=== PATIENT | female | born 1935 | race African-American/Black ===

== ENCOUNTER 2017-02-15 17:57 | Inpatient (IN) | payer MEDICARE ==
--- NOTE | 2017-02-15 19:25 | RAD ---
CHEST ONE VIEW 02/15/17 HISTORY: Dyspnea. Edema. COMPARISON: 01/05/16. FINDINGS: The cardiac silhouette is magnified and enlarged. Pulmonary vasculature is engorged with fluffy bilat eral perihilar and bibasilar infiltrates. Mediastinum is midline with aortic calcification. There is no evidence of pneumothorax. yard switcher leads overlie the chest. IMPRESSION: 1. CHF. 2. Atherosclerosis. POS: ROGER
[2017-02-15] MEDS ORDERED: Piperacillin/Tazobactam 3.375 GM in Sodium Chloride 0.9% 100 ML IVPB SCH (20:00)
[2017-02-15 20:01] LABS: #Eosinphils 0.1 thou/uL (0.0-0.7); #Lymphocytes 1.1 thou/uL (1.20-3.40); #Monocytes 0.6 thou/uL (0.11-0.59); #Neutrophils 5.1 thou/uL (1.40-6.50); %Basophils 0.4 % (0.0-1.0); %Eosinophils 0.8 % (0.0-10.0); %Monocytes 9.3 % (0.0-10.0); Hematocrit 33.1 % (36.0-47.0); Mean Platelet Volume 7.2 fL (7.4-10.4); Red Blood Cell (RBC) Count 3.73 mill/uL (4.20-5.40); White Blood Cell (WBC) Count 6.9 thou/uL (4.8-10.8)
[2017-02-15 20:07] LABS: PTT 31.6 SEC (22.9-36.1); Prothrombin Time 15.4 SEC (12.0-14.7)
[2017-02-15 20:18] LABS: Lactic Acid - Sepsis 1.6 mmol/L (0.5-2.2)
[2017-02-15 20:22] LABS: ALT (SGPT) 12 U/L (8-55); AST (SGOT) 15 U/L (5-34); Alkaline Phosphatase 77 U/L (40-150); Anion Gap 14 mmol/L (10-20); BUN (Urea Nitrogen) 32 mg/dL (9.8-20.1); Bilirubin, Total 0.3 mg/dL (0.2-1.2); CK (CPK) 118 U/L (29-168); Calc. Creatinine Clearance 0 mL/min (70-130); Calcium 9.7 mg/dL (7.8-10.44); Carbon Dioxide 27 mmol/L (23-31); Chloride 98 mmol/L (98-107); Estimated GFR-MDRD 29; Globulin 4.8 g/dL (2.4-3.5); Lipase 72 U/L (8-78); Protein, Total 7.8 g/dL (6.0-8.3)
[2017-02-15 20:26] LABS: Troponin I 0.256 ng/mL (< 0.028)
--- NOTE | 2017-02-15 20:57 | ULT ---
LEFT LOWER EXTREMITY VENOUS DUPLEX SONOGRAM 02/15/17 HISTORY: Left leg pain and edema. FINDINGS: The left common femoral vein and greater saphenous junction were evaluated along with the femoral, de ep femoral, popliteal and posterior tibial veins. There is good color and spectral doppler flow, comp ression and augmentation. IMPRESSION: No sonographic evidence of DVT within the left lower extremity. POS: LISA
--- NOTE | 2017-02-15 21:18 | RAD ---
LEFT LOWER LEG TWO VIEWS 02/15/17 HISTORY: Left leg pain and swelling. FINDINGS: The tibia and fibula are intact. Vascular calcifications are apparent. No acute fracture or dislocati on. IMPRESSION: 1. No acute osseous abnormalities are demonstrated. 2. Atherosclerosis. POS: ROGER
[2017-02-15 21:20] LABS: Bacteria/HPF 4+ HPF (None Seen); Bilirubin Negative (Negative); Blood, Urine Trace (Negative); Glucose, Urine (Dipstick) 500 mg/dL (Negative); Hyaline Casts/LPF 0-3 HYALINE CAST LPF (0-3 Hyaline); Ketone, Urine Negative (Negative); Nitrite Negative (Negative); Protein, Urine (Dipstick) Trace mg/dL (Neg-Trace); RBC/HPF 0-3 HPF (0-3)
[2017-02-15] MEDS ORDERED: hydrALAZINE 20 MG/ML VIAL SLOW IVP PRN (22:53)
[2017-02-15] MEDS ORDERED: Eucerin (Mineral Oil/Petrolatum,White) 30 gm Jar TOP PRN (22:53)
[2017-02-15] MEDS ORDERED: Dextrose 5% in Water 1,000 ML IV PRN (22:53)
[2017-02-15] MEDS ORDERED: Senokot 8.6 MG TAB PO PRN (22:53)
[2017-02-15] MEDS ORDERED: Artificial Tears 18 DROP/0.9 ML EA EYE PRN (22:53)
[2017-02-15] MEDS ORDERED: Sodium Chloride 0.65% Nasal 44 ML BOT EA NARE PRN (22:53)
[2017-02-15] MEDS ORDERED: Dextrose 50% Abboject 50 ML SYRINGE SLOW IVP PRN (22:53)
[2017-02-15] MEDS ORDERED: Diabetic Tussin 200 MG/10 ML UDCUP PO PRN (22:53)
[2017-02-15] MEDS ORDERED: Nitroglycerin 0.4 MG TAB (25 Tab Bottle) SL PRN (22:53)
[2017-02-15] MEDS ORDERED: Milk Of Magnesia 30 ML UDCUP PO PRN (22:53)
[2017-02-15] MEDS ORDERED: Ondansetron ODT 4 MG TAB PO PRN (22:53)
[2017-02-15] MEDS ORDERED: Ondansetron HCl/PF 4 MG/2 ML Vial IVP PRN (22:53)
[2017-02-15] MEDS ORDERED: Mag-Al 1200 mg/1200 mg/30 ML UDCUP PO PRN (22:53)
[2017-02-15] MEDS ORDERED: Zolpidem Tartrate 5 MG TAB PO PRN (22:53)
[2017-02-15] MEDS ORDERED: cloNIDine 0.1 MG TAB PO PRN (22:53)
[2017-02-15] MEDS ORDERED: Loperamide HCl 2 MG CAP PO PRN (22:53)
[2017-02-15] MEDS ORDERED: Loratadine 10 MG TAB PO PRN (22:53)
--- NOTE | 2017-02-15 23:38 | PDOC.EVN ---
Event Note - Event Note Event Note: Patient seen and examined. dictation note to follow
[2017-02-15 23:47] LABS: Troponin I 0.232 ng/mL (< 0.028)
[2017-02-16] MEDS: cefTRIAXone\\ROCEPHIN 1 GM in Syringe 10 ML IVPB SCH (00:37)
[2017-02-16 02:16] LABS: Troponin I 0.212 ng/mL (< 0.028)
--- NOTE | 2017-02-16 03:37 | HP ---
DATE OF SERVICE: 02/15/2017 PRIMARY CARE PHYSICIAN: Ian Holloway M.D. REASON FOR ADMISSION: Left lower extremity cellulitis, acute on chronic diastolic congestive heart f ailure. HISTORY OF PRESENT ILLNESS: An 81-year-old female who has history of morbid obesity, diabetes type 2 , hypertension, and chronic diastolic heart failure, who was brought to the emergency room for increa sing bilateral lower extremity edema, left more than right. The patient's family member reported mark t left lower extremity had two blisters, which was ruptured. The patient's family member also notice d that left lower extremity was more erythematous, warm and tender. The patient was feeling shortnes s of breath with a little exertion. She denies any chest pain, palpitation. She denies any dizzines s. She denies any UTI symptoms. The patient lives at home by herself. Her physical activity is very limited. She is using rolling w alker. This patient had last echocardiography in 2016, which showed EF 60% to 65% with a diastolic d ysfunction. The patient is taking Lasix 40 mg daily, but that is not improving her edema. Today in the emergency room, her chest x-ray showed pulmonary vascular congestion. Her blood sugar w as not well controlled and she had elevated troponin. The patient also has urinary tract infection, but patient denies any UTI symptoms. She denies any constipation, diarrhea or melena. ALLERGIES: No known drug allergies. CURRENT HOME MEDICATIONS: Aspirin 81 mg p.o. daily, Coreg 25 mg p.o. b.i.d., Lasix 40 mg p.o. b.i.d. , Lyrica 75 mg p.o. b.i.d., Crestor 20 mg p.o. daily, Janumet one tablet p.o. b.i.d., Januvia 50 mg p .o. daily, valsartan with hydrochlorothiazide one tablet p.o. daily. REVIEW OF SYSTEMS: The following complete review of systems was negative, unless otherwise mentioned in the HPI or below: Constitutional: Weight loss or gain, ability to conduct usual activities. Skin: Rash, itching. Eyes: Double vision, pain. ENT/Mouth: Nose bleeding, neck stiffness, pain, tenderness. Cardiovascular: Palpitations, dyspnea on exertion, orthopnea. Respiratory: Shortness of breath, wheezing, cough, hemoptysis, fever or night sweats. Gastrointestinal: Poor appetite, abdominal pain, heartburn, nausea, vomiting, constipation, or diarr hea. Genitourinary: Urgency, frequency, dysuria, nocturia. Musculoskeletal: Pain, swelling. Neurologic/Psychiatric: Anxiety, depression. Allergy/Immunologic: Skin rash, bleeding tendency. Otherwise negative except as stated per HPI. Please see my HPI for pertinent positive and negative. All other review of systems reviewed and nega tive except as mentioned in the HPI. PAST MEDICAL HISTORY: Diabetes type 2, diabetic neuropathy, hypertension, dyslipidemia, chronic banks tolic heart failure, osteoarthritis, morbid obesity. PAST SURGICAL HISTORY: Appendicectomy, hysterectomy. PAST PSYCHIATRIC HISTORY: Reviewed and negative. SOCIAL HISTORY: The patient lives at home by herself. Her daughter is present at bedside, who provi get help to her. She denies any tobacco, alcohol or illicit drug abuse. FAMILY HISTORY: No strong family history of premature coronary artery disease, stroke or cancer. EMERGENCY ROOM COURSE: The patient was given vancomycin, Zosyn, nitropatch and aspirin. PHYSICAL EXAMINATION: VITAL SIGNS: On arrival, blood pressure 140/61, pulse 69, respiratory rate 18, temperature 99.0, sat uration 96% on room air, weight 117.9 kilograms. GENERAL: The patient is currently alert, awake, no obvious acute distress, hypertensive chronically weak. HEAD: Normocephalic, atraumatic. EYES: Pupils round, reactive to light. Extraocular muscles intact. ENT: Oropharynx within normal limits. Moist mucous membranes. No oral lesions. No pharyngeal eryt flavia, no exudate. NECK: Supple, range of motion is normal. No meningeal signs of irritation, no JVD, no thyromegaly, no carotid bruit. LUNGS: Bibasilar rales noted. Air entry reduced at bases. CARDIAC: S1, S2 regular. Systolic murmur present at the left parasternal border. No gallop, no rub . ABDOMEN: Morbid obesity limiting examination. No peritoneal signs, no guarding, no rigidity, no aakash ound, no suprapubic tenderness. BACK: Unremarkable. No CVA tenderness. EXTREMITIES: Upper extremities: Passive movement of all joints are normal. Lower extremities: Lef t lower extremity has erythema, tenderness, blister noted and more swollen than the right lower extre mity. A +3 pitting edema noted. Pulsation is intact. NEUROLOGIC: The patient moves all 4 limbs. Grossly nonfocal examination. SKIN: The patient does have bilateral venostasis changes in lower extremities with blisters on the l eft lower extremity. PSYCHIATRIC: Normal affect. SIGNIFICANT LABS: EKG showing first-degree AV block, nonspecific T-wave changes in anterior leads. Chest x-ray was consistent with findings suggestive of atherosclerosis, pulmonary vascular congestion . Ultrasound of left lower extremity is negative for any DVT, tibia, fibula x-ray negative for any a cute process. CBC: WBC 6.9, hemoglobin 10.7, platelets 204. INR 1.2. BMP: Sodium 135, potassium 3.9, chloride 98, carbon dioxide 27, anion gap 14, BUN 32, creatinine 1.98, glucose 380, calcium 9.7. Lactic acid 1.6. LFT: AST 15, ALT 12, alkaline phosphatase 77, albumin 3.0. CK 118, CK-MB 1.5, t roponin 0.256. BNP 411.9. Urinalysis suggestive of urinary tract infection. ASSESSMENT AND PLAN/IMPRESSION: 1. Left lower extremity cellulitis. Clinically, this patient has left lower extremity cellulitis. The patient will be given vancomycin and Rocephin while in hospital. Vancomycin dose will be adjuste d by pharmacy. We will repeat CRP level tomorrow. We will follow up on blood culture result. 2. Acute on chronic diastolic congestive heart failure. We will repeat echocardiography during this admission. Cardiac rehabilitation will be consulted. We will continue with Lasix 40 mg IV b.i.d., fluid restriction 1500 mL per day. We will also consider adding Zaroxolyn 5 mg p.o. daily. While in hospital, we will monitor renal function. We will replace electrolytes as needed basis. We will co ntinue with Coreg 25 mg p.o. b.i.d. 3. Hypertension. We will continue Coreg 25 mg p.o. b.i.d., valsartan with hydrochlorothiazide one t ablet p.o. daily along with Lasix 40 mg IV b.i.d. We will also use hydralazine on p.r.n. basis. 4. Urinary tract infection. We will send urine culture. The patient is already on Rocephin and van comycin therapy. We will follow up on urine culture result. 5. Diabetes type 2, uncontrolled. We will continue with Januvia only because of renal failure. We will avoid metformin therapy. We will continue with insulin as per sliding scale per protocol. Diab etic diet will be given. 6. Elevated troponin, likely due to demand ischemia. We will do serial cardiac enzymes to rule out acute coronary syndrome and we will obtain echocardiography. We will continue with aspirin 81 mg p.o . daily. 7. Morbid obesity with BMI of 43, weight loss education given. Healthy lifestyle measure discussed with the patient. 8. Physical deconditioning. The patient will need PT, OT, and possible placement to [facility] home. 9. Chronic kidney disease, stage 3. We will monitor renal function and replace electrolytes as need ed basis. 10. Anemia, normocytic, normochromic. We will continue with ferrous sulfate 325 mg p.o. daily. 11. Deep venous thrombosis prophylaxis, heparin 5000 units subcu 3 times daily. 12. Gastrointestinal prophylaxis, Protonix 40 mg p.o. daily. CODE STATUS: The patient is FULL CODE. The patient's daughter is surrogate decision maker. Disposition plan based on clinical course. We are expecting patient's stay in the hospital more than 2 midnights. Plan of care discussed with the family member at bedside.
[2017-02-16] MEDS: HYDROcodone/Acetaminophen 5/325 mg Tablet PO PRN ×3 (04:32→21:39)
[2017-02-16 05:33] LABS: #Eosinphils 0.1 thou/uL (0.0-0.7); #Lymphocytes 1.1 thou/uL (1.20-3.40); #Monocytes 0.7 thou/uL (0.11-0.59); #Neutrophils 5.3 thou/uL (1.40-6.50); %Basophils 0.1 % (0.0-1.0); %Eosinophils 1.4 % (0.0-10.0); %Lymphocytes 14.7 % (21.0-51.0); %Monocytes 9.8 % (0.0-10.0); Hematocrit 28.5 % (36.0-47.0); Red Blood Cell (RBC) Count 3.21 mill/uL (4.20-5.40); White Blood Cell (WBC) Count 7.2 thou/uL (4.8-10.8)
[2017-02-16 05:41] LABS: ALT (SGPT) 11 U/L (8-55); AST (SGOT) 12 U/L (5-34); Alkaline Phosphatase 69 U/L (40-150); Anion Gap 13 mmol/L (10-20); BUN (Urea Nitrogen) 27 mg/dL (9.8-20.1); Bilirubin, Total 0.3 mg/dL (0.2-1.2); Calc. Creatinine Clearance 50 mL/min (70-130); Calcium 9.6 mg/dL (7.8-10.44); Carbon Dioxide 27 mmol/L (23-31); Chloride 102 mmol/L (98-107); Estimated GFR-MDRD 37; Globulin 4.4 g/dL (2.4-3.5); Magnesium 1.5 mg/dL (1.6-2.6); Protein, Total 7.1 g/dL (6.0-8.3); Uric Acid 10.2 mg/dL (2.6-6.0)
[2017-02-16] MEDS: Furosemide 40 MG/4 ML VIAL SLOW IVP SCH ×2 (06:31→14:00)
[2017-02-16] MEDS: Ferrous Sulfate 325 MG TAB PO SCH (08:36)
[2017-02-16] MEDS: Metolazone 5 MG TAB PO SCH (08:37)
[2017-02-16] MEDS: Carvedilol 25 MG TAB PO SCH ×2 (08:37→21:40)
[2017-02-16] MEDS: Heparin 5,000 UNITS/ML VIAL SC SCH ×3 (08:37→21:40)
[2017-02-16] MEDS: Alogliptin Benzoate 6.25 MG TABLET PO SCH (08:37)
[2017-02-16] MEDS: Hydrochlorothiazide 25 MG TAB PO SCH (08:38)
[2017-02-16] MEDS: Pregabalin 75 MG CAP PO SCH ×2 (08:38→21:38)
[2017-02-16] MEDS: Saccharomyces boulardii 250 MG CAP PO SCH (08:39)
[2017-02-16] MEDS: Valsartan 80 MG TAB PO SCH (08:40)
[2017-02-16] MEDS ORDERED: Non-Formulary Item 1 EACH (Valsartan/Hydrochlorothiazide [Valsartan-Hctz 320-12.5 Mg Tab] PO SCH (09:00)
[2017-02-16] MEDS ORDERED: FLU VACC TS2017-18 (>65YR) 0.5 ML SYRINGE IM ONE (09:00)
[2017-02-16] MEDS: HumaLOG 300 UNITS/3 ML VIAL SC PRN ×2 (12:18→17:17)
--- NOTE | 2017-02-16 12:27 | PDOC.PN ---
- Subjective Encounter Start Date: 02/16/17 Encounter Start Time: 11:35 Pt seen and examined, chart reviewed in its entirety. This is my first visit with this patient. pt complains of L>R BLE pain, swelling. no f/C,no N/V/d/c, archie po. feels weak. Daughter at mary, updated to current diagnossi and plan. 10 point ROS performed and neg for all systems except as per HPI - Objective Resuscitation Status: Resuscitation Status FULL:Full Resuscitation MAR Reviewed: Yes Vital Signs & Weight: Vital Signs (12 hours) Temp Pulse Pulse Pulse Resp BP BP 02/16/17 08:31 98.7 F 72 18 02/16/17 08:00 98.7 F 72 18 02/16/17 07:31 70 72 141/65 H 147/65 H 02/16/17 04:00 97.3 F L 72 20 BP Pulse Ox Pulse Ox 02/16/17 08:31 176/72 H 95 02/16/17 08:00 95 02/16/17 07:31 95 02/16/17 04:00 153/66 H 96 Weight Weight 252 lb I&O: 02/15/17 02/16/17 02/17/17 06:59 06:59 06:59 Intake Total 10 Balance 10 Result Diagrams: 02/16/17 04:52 02/16/17 04:52 Additional Labs: Accuchecks 02/16/17 02/16/17 12:00 06:23 POC Glucose 305 H 256 H Radiology Reviewed by me: Yes EKG Reviewed by me: Yes Phys Exam - Physical Examination Constitutional: NAD HEENT: PERRLA, moist MMs, sclera anicteric, oral pharynx no lesions Neck: no nodes, no JVD, supple, full ROM Respiratory: no wheezing, no rales, no rhonchi, clear to auscultation bilateral no crackles heard Cardiovascular: RRR, no significant murmur, no rub Gastrointestinal: soft, non-tender, no distention, positive bowel sounds Musculoskeletal: pulses present, edema present Left more than right LE edema Neurological: non-focal, normal sensation, moves all 4 limbs Lymphatic: no nodes Psychiatric: normal affect, A&O x 3 Skin: no rash, normal turgor, cap refill <2 seconds Deviation from normal: LLE with increased edma, posterior ankle bulla, increased heat and redness Dx/Plan (1) Cellulitis and abscess of left leg Code(s): L03.116 - CELLULITIS OF LEFT LOWER LIMB; L02.416 - CUTANEOUS ABSCESS OF LEFT LOWER LIMB Status: Acute Comment: look streptococcal, clinically correct givne cgronic edema and intertriginous cracking to B feet. On broad bx , will narrwo to Rocephin, addind in clinda for toxin inhibition. Will elevate and compress. Wound care consulted (2) Sepsis Code(s): A41.9 - SEPSIS, UNSPECIFIED ORGANISM Status: Acute Qualifiers: Sepsis type: Streptococcus group A Qualified Code(s): A40.0 - Sepsis due to streptococcus, group A (3) Chronic diastolic (congestive) heart failure Code(s): I50.32 - CHRONIC DIASTOLIC (CONGESTIVE) HEART FAILURE Status: Chronic (4) Diabetes type 2, controlled Code(s): E11.9 - TYPE 2 DIABETES MELLITUS WITHOUT COMPLICATIONS Status: Chronic Qualifiers: Diabetes mellitus complication status: without complication Diabetes mellitus snf insulin use: with snf use Qualified Code(s): E11.9 - Type 2 diabetes mellitus without complications; Z79.4 - MCFP (current) use of insulin; Z79.4 - MCFP (current) use of insulin; Z79.4 - long term ( current) use of insulin; Z79.4 - long term (current) use of insulin (5) Hypertension Code(s): I10 - ESSENTIAL (PRIMARY) HYPERTENSION Status: Chronic Qualifiers: Hypertension type: essential hypertension Qualified Code(s): I10 - Essential (primary) hypertension (6) Morbid obesity with BMI of 40.0-44.9, adult Code(s): E66.01 - MORBID (SEVERE) OBESITY DUE TO EXCESS CALORIES; Z68.41 - BODY MASS INDEX (BMI) 40.0-44.9, ADULT Status: Chronic - Plan cont current plan of care, plan discussed w/ family, continue antibiotics, PT/OT , social insurance adviser * .
[2017-02-16] MEDS: Clindamycin/D5W 600 MG in Premix Bag 1 BAG IVPB SCH ×2 (14:00→21:40)
[2017-02-16] MEDS ORDERED: Vancomycin HCl 1 GM in Premix Bag 1 BAG IVPB SCH (20:00)
[2017-02-16] MEDS: Acetaminophen 325 MG TAB PO PRN (21:39)
[2017-02-17] MEDS: cefTRIAXone\\ROCEPHIN 1 GM in Syringe 10 ML IVPB SCH ×2 (00:23→23:42)
[2017-02-17 05:18] LABS: #Eosinphils 0.1 thou/uL (0.0-0.7); #Lymphocytes 1.3 thou/uL (1.20-3.40); #Neutrophils 8.3 thou/uL (1.40-6.50); %Basophils 0.3 % (0.0-1.0); %Eosinophils 0.5 % (0.0-10.0); %Lymphocytes 12.4 % (21.0-51.0); %Monocytes 9.4 % (0.0-10.0); Hematocrit 29.8 % (36.0-47.0); Mean Platelet Volume 6.9 fL (7.4-10.4); Red Blood Cell (RBC) Count 3.38 mill/uL (4.20-5.40); White Blood Cell (WBC) Count 10.7 thou/uL (4.8-10.8)
[2017-02-17 05:41] LABS: Anion Gap 11 mmol/L (10-20); BUN (Urea Nitrogen) 28 mg/dL (9.8-20.1); Calc. Creatinine Clearance 50 mL/min (70-130); Calcium 9.9 mg/dL (7.8-10.44); Carbon Dioxide 32 mmol/L (23-31); Chloride 99 mmol/L (98-107); Estimated GFR-MDRD 37
[2017-02-17] MEDS: Clindamycin/D5W 600 MG in Premix Bag 1 BAG IVPB SCH ×3 (06:15→21:06)
[2017-02-17] MEDS: Furosemide 40 MG/4 ML VIAL SLOW IVP SCH ×2 (06:46→14:21)
[2017-02-17] MEDS: Carvedilol 25 MG TAB PO SCH ×2 (08:52→21:14)
[2017-02-17] MEDS: Alogliptin Benzoate 6.25 MG TABLET PO SCH (08:52)
[2017-02-17] MEDS: Hydrochlorothiazide 25 MG TAB PO SCH (08:53)
[2017-02-17] MEDS: Saccharomyces boulardii 250 MG CAP PO SCH (08:53)
[2017-02-17] MEDS: Ferrous Sulfate 325 MG TAB PO SCH (08:53)
[2017-02-17] MEDS: Metolazone 5 MG TAB PO SCH (08:53)
[2017-02-17] MEDS: Valsartan 80 MG TAB PO SCH (08:53)
[2017-02-17] MEDS: Pregabalin 75 MG CAP PO SCH ×2 (08:54→21:13)
[2017-02-17] MEDS: Heparin 5,000 UNITS/ML VIAL SC SCH ×3 (08:55→21:14)
[2017-02-17] MEDS ORDERED: Potassium Chloride 20 MEQ TAB PO SCH (10:30)
[2017-02-17] MEDS ORDERED: Potassium Chloride 40 MEQ in Sodium Chloride 0.9% 500 ML IVPB SCH ×4 (10:30)
[2017-02-17] MEDS: HumaLOG 300 UNITS/3 ML VIAL SC PRN ×3 (12:10→23:36)
--- NOTE | 2017-02-17 14:02 | PDOC.PN ---
- Subjective Encounter Start Date: 02/17/17 Encounter Start Time: 13:59 Subjective: feels better.swelling is better in legs. pain on touch still there -: c/o constipation - Objective Resuscitation Status: Resuscitation Status FULL:Full Resuscitation MAR Reviewed: Yes Vital Signs & Weight: Vital Signs (12 hours) Temp Pulse Pulse Pulse Resp BP BP 02/17/17 10:23 76 72 115/56 L 130/63 02/17/17 09:00 99.5 F 02/17/17 08:00 100.2 F H 77 17 02/17/17 05:14 100.0 F H 73 18 BP Pulse Ox 02/17/17 10:23 02/17/17 09:00 02/17/17 08:00 153/65 H 94 L 02/17/17 05:14 137/62 94 L Weight Weight 251 lb I&O: 02/16/17 02/17/17 02/18/17 06:59 06:59 06:59 Intake Total 10 720 440 Balance 10 720 440 Result Diagrams: 02/17/17 05:04 02/17/17 05:04 Additional Labs: Accuchecks 02/17/17 02/17/17 02/16/17 11:22 06:11 21:07 POC Glucose 291 H 210 H 167 H Microbiology 02/15/17 21:00 Urine voided Urine Culture - Preliminary Presumptive Escherichia coli 02/15/17 20:07 Venous blood - Left Hand Blood Culture - Preliminary Specimen has been received and culture in progress. No Growth to date. 02/15/17 19:49 Venous blood - Right Hand Blood Culture - Preliminary Specimen has been received and culture in progress. No Growth to date. Laboratory Tests 02/15/17 02/15/17 02/15/17 19:47 19:47 19:47 Creatinine 1.98 H Troponin I 0.256 H C-Reactive Protein B-Natriuretic Peptide 411.9 H 02/15/17 02/16/17 02/16/17 22:46 01:43 04:52 Creatinine 1.63 H Troponin I 0.232 H 0.212 H C-Reactive Protein B-Natriuretic Peptide 02/16/17 02/17/17 04:52 05:04 Creatinine 1.63 H Troponin I C-Reactive Protein 10.26 H B-Natriuretic Peptide Radiology Reviewed by me: Yes (ECHO- NL EF. LE doppler-No DVT left leg) Phys Exam - Physical Examination Constitutional: NAD HEENT: PERRLA, moist MMs, sclera anicteric, oral pharynx no lesions Neck: no nodes, no JVD, supple, full ROM Respiratory: no wheezing, no rales, no rhonchi, clear to auscultation bilateral Cardiovascular: RRR, no significant murmur, no rub, gallop Gastrointestinal: soft, non-tender, no distention, positive bowel sounds Musculoskeletal: pulses present, edema present (improving.) Neurological: non-focal, normal sensation, moves all 4 limbs Psychiatric: normal affect, A&O x 3 Skin: no rash Dx/Plan (1) Cellulitis and abscess of left leg Code(s): L03.116 - CELLULITIS OF LEFT LOWER LIMB; L02.416 - CUTANEOUS ABSCESS OF LEFT LOWER LIMB Status: Acute Comment: look streptococcal . On Rocephin and clinda for toxin inhibition. elevate and compress. Wound care consulted (2) Acute on chronic diastolic CHF (congestive heart failure) Code(s): I50.33 - ACUTE ON CHRONIC DIASTOLIC (CONGESTIVE) HEART FAILURE Status : Acute (3) UTI (urinary tract infection) Status: Resolved Comment: E.coli (4) CKD (chronic kidney disease) stage 3, GFR 30-59 ml/min Code(s): N18.3 - CHRONIC KIDNEY DISEASE, STAGE 3 (MODERATE) Status: Chronic (5) Diabetes type 2, controlled Code(s): E11.9 - TYPE 2 DIABETES MELLITUS WITHOUT COMPLICATIONS Status: Chronic Qualifiers: Diabetes mellitus complication status: with hyperglycemia Diabetes mellitus commodity loan clerk insulin use: with commodity loan clerk use Qualified Code(s): E11.65 - Type 2 diabetes mellitus with hyperglycemia; Z79.4 - halfway (current) use of insulin; Z79.4 - training program assistant (current) use of insulin; Z79.4 - training program assistant ( current) use of insulin; Z79.4 - halfway (current) use of insulin (6) Hypertension Code(s): I10 - ESSENTIAL (PRIMARY) HYPERTENSION Status: Chronic Qualifiers: Hypertension type: essential hypertension Qualified Code(s): I10 - Essential (primary) hypertension (7) Morbid obesity with BMI of 40.0-44.9, adult Code(s): E66.01 - MORBID (SEVERE) OBESITY DUE TO EXCESS CALORIES; Z68.41 - BODY MASS INDEX (BMI) 40.0-44.9, ADULT Status: Chronic (8) Elevated troponin I level Code(s): R74.8 - ABNORMAL LEVELS OF OTHER SERUM ENZYMES Status: Acute - Plan continue antibiotics, PT/OT, out of bed/ambulate, DVT proph w/SCDs cont ABx for LLE cellulitis.no DVT.clinically improving. -: cont lasix ,zaroxolyn for now. taper from tomorrow. Monitor renal Fx -: cont ASA, BB,ARB,statin. ECHO with good EF. -: HF clinic f/u on DC.cont OT,PT. -: add laxatives.AM labs * . Review of Systems - Review of Systems Constitutional: Weakness, Malaise. negative: Fever, Chills, Sweats, Other ENT: negative: Ear Pain, Ear Discharge, Nose Pain, Nose Discharge, Nose Congestion, Mouth Pain, Mouth Swelling, Throat Pain, Throat Swelling, Other Respiratory: negative: Cough, Dry, Shortness of Breath, Hemoptysis, SOB with Excertion, Pleuritic Pain, Sputum, Wheezing Cardiovascular: negative: Chest Pain, Palpitations, Orthopnea, Paroxysmal Noc. Dyspnea, Edema, Light Headedness, Other Gastrointestinal: negative: Nausea, Vomiting, Abdominal Pain, Diarrhea, Constipation, Melena, Hematochezia, Other Genitourinary: negative: Dysuria, Frequency, Incontinence, Hematuria, Retention , Other Musculoskeletal: Leg Pain (left ). negative: Neck Pain, Shoulder Pain, Arm Pain , Back Pain, Hand Pain, Foot Pain, Other - Medications/Allergies Allergies/Adverse Reactions: Allergies Allergy/AdvReac Type Severity Reaction Status Date / Time No Known Drug Allergies Allergy Verified 02/15/17 23:23 Medications: Current Medications Acetaminophen (Tylenol) 650 mg PO Q4H PRN PRN Reason: Headache/Fever or Pain Last Admin: 02/16/17 21:39 Dose: 650 mg Hydrocodone Bitart/Acetaminophen ([place] 5/325) 1 tab PO Q4H PRN PRN Reason: Moderate Pain (4-6) Last Admin: 02/16/17 21:39 Dose: 1 tab Al Hydroxide/Mg Hydroxide (Maalox) 30 ml PO Q6H PRN PRN Reason: Heartburn or Indigestion Alogliptin Benzoate (Alogliptin) 12.5 mg PO DAILY [facility] Last Admin: 02/17/17 08:52 Dose: 12.5 mg Artificial Tears (Tears Naturale) 0 drop EA EYE PRN PRN PRN Reason: Dry Eyes Aspirin (Aspirin Chewable) 81 mg PO DAILY [facility] Last Admin: 02/17/17 08:52 Dose: 81 mg Carvedilol (Coreg) 25 mg PO BID [facility] Last Admin: 02/17/17 08:52 Dose: 25 mg Clonidine (Catapres) 0.1 mg PO Q4H PRN PRN Reason: Systolic BP > 180 Dextrose/Water (Dextrose 50%) 25 gm SLOW IVP PRN PRN PRN Reason: Hypoglycemia Ferrous Sulfate (Feosol) 325 mg PO QAM-[facility] Last Admin: 02/17/17 08:53 Dose: 325 mg Furosemide (Lasix) 40 mg SLOW IVP 0600,1400 [facility] Last Admin: 02/17/17 06:46 Dose: 40 mg Glucagon (Glucagon) 1 mg IM PRN PRN PRN Reason: Hypoglycemia Guaifenesin (Robitussin Sf) 200 mg PO Q4H PRN PRN Reason: Cough Heparin Sodium (Porcine) (Heparin) 5,000 units SC TID [facility] Last Admin: 02/17/17 08:55 Dose: 5,000 units Hydralazine HCl (Apresoline) 10 mg SLOW IVP Q4H PRN PRN Reason: Systolic BP > 180 Hydrochlorothiazide (Hydrochlorothiazide) 12.5 mg PO DAILY [facility] Last Admin: 02/17/17 08:53 Dose: 12.5 mg Ceftriaxone Sodium 1 gm/ (Syringe) 10 mls @ 120 mls/hr IVPB Q24HR@2359 [facility] Last Admin: 02/17/17 00:23 Dose: 10 mls Dextrose/Water (D5w) 1,000 mls @ 0 mls/hr IV .Q0M PRN; As Directed PRN Reason: Hypoglycemia Clindamycin Phosphate/Dextrose (600 mg/ Device) 50 mls @ 100 mls/hr IVPB Q8HR [facility] Last Admin: 02/17/17 06:15 Dose: 50 mls Potassium Chloride 40 meq/ (Sodium Chloride) 520 mls @ 130 mls/hr IVPB NOW [facility] Stop: 02/17/17 14:29 Last Admin: 02/17/17 10:53 Dose: 520 mls Insulin Human Lispro (Humalog) 0 units SC .AGGRESSIVE SLIDING PRN PRN Reason: Aggressive Correctional Scale Last Admin: 02/17/17 12:10 Dose: 9 unit Insulin Human Lispro (Humalog) 0 units SC .BEDTIME SLIDING SC PRN PRN Reason: Bedtime Correctional Scale Loperamide HCl (Imodium) 2 mg PO PRN PRN PRN Reason: Diarrhea/Loose Stools Loratadine (Claritin) 10 mg PO DAILYPRN PRN PRN Reason: Sinus Symptoms Magnesium Hydroxide (Milk Of Magnesium) 30 ml PO DAILYPRN PRN PRN Reason: Constipation Metolazone (Zaroxolyn) 5 mg PO 0830 [facility] Last Admin: 02/17/17 08:53 Dose: 5 mg Mineral Oil/White Petrolatum (Eucerin Cream) 0 gm TOP BIDPRN PRN PRN Reason: Dry Skin Nitroglycerin (Nitrostat) 0.4 mg SL Q5MIN PRN PRN Reason: Chest Pain Ondansetron HCl (Zofran Odt) 4 mg PO Q6H PRN PRN Reason: Nausea/Vomiting Ondansetron HCl (Zofran) 4 mg IVP Q6H PRN PRN Reason: Nausea/Vomiting Pantoprazole Sodium (Protonix) 40 mg PO DAILY [facility] Last Admin: 02/17/17 08:52 Dose: 40 mg Potassium Chloride (K-Dur) 20 meq PO BID-[facility] Pregabalin (Lyrica) 75 mg PO BID [facility] Last Admin: 02/17/17 08:54 Dose: 75 mg Rosuvastatin Calcium (Crestor) 20 mg PO DAILY [facility] Last Admin: 02/17/17 08:54 Dose: 20 mg Saccharomyces Boulardii (Florastor) 250 mg PO DAILY [facility] Last Admin: 02/17/17 08:53 Dose: 250 mg Senna (Senokot) 2 tab PO HSPRN PRN PRN Reason: Constipation Sodium Chloride ([place] 0.65%) 0 ml EA NARE QIDPRN PRN PRN Reason: Nasal Congestion Valsartan (Diovan) 320 mg PO DAILY [facility] Last Admin: 02/17/17 08:53 Dose: 320 mg Zolpidem Tartrate (Ambien) 5 mg PO HSPRN PRN PRN Reason: Insomnia
[2017-02-17] MEDS ORDERED: Docusate 100 MG CAP PO PRN (14:13)
[2017-02-17] MEDS ORDERED: Bisacodyl 5 MG TAB PO PRN (14:13)
[2017-02-17] MEDS: Acetaminophen 325 MG TAB PO PRN (15:39)
[2017-02-17] MEDS: Potassium Chloride 20 MEQ TAB PO SCH (16:35)
[2017-02-18] MEDS: Clindamycin/D5W 600 MG in Premix Bag 1 BAG IVPB SCH ×3 (05:40→21:39)
[2017-02-18] MEDS: Acetaminophen 325 MG TAB PO PRN (05:40)
[2017-02-18 05:44] LABS: #Monocytes 0.8 thou/uL (0.11-0.59); #Neutrophils 8.7 thou/uL (1.40-6.50); %Basophils 0.1 % (0.0-1.0); %Eosinophils 0.4 % (0.0-10.0); %Monocytes 7.7 % (0.0-10.0); Hematocrit 30.7 % (36.0-47.0); Mean Platelet Volume 7.3 fL (7.4-10.4); Red Blood Cell (RBC) Count 3.49 mill/uL (4.20-5.40); White Blood Cell (WBC) Count 10.5 thou/uL (4.8-10.8)
[2017-02-18 05:49] LABS: Anion Gap 12 mmol/L (10-20); BUN (Urea Nitrogen) 29 mg/dL (9.8-20.1); Calc. Creatinine Clearance 45 mL/min (70-130); Calcium 9.6 mg/dL (7.8-10.44); Carbon Dioxide 31 mmol/L (23-31); Chloride 97 mmol/L (98-107); Estimated GFR-MDRD 33
--- NOTE | 2017-02-18 08:26 | PDOC.PN ---
- Subjective Encounter Start Date: 02/18/17 Encounter Start Time: 08:00 Subjective: FEELING BETTER, SWELLING IMPROVED CONTINUED PAIN WITH PALPATION - Objective Resuscitation Status: Resuscitation Status FULL:Full Resuscitation MAR Reviewed: Yes Vital Signs & Weight: Vital Signs (12 hours) Temp Pulse Resp BP Pulse Ox 02/18/17 08:00 99.4 F 70 16 119/58 L 94 L 02/18/17 04:00 101.3 F H 72 20 138/58 L 95 02/17/17 20:45 99.9 F H 76 18 118/56 L 96 Weight Weight 249 lb 6.4 oz I&O: 02/17/17 02/18/17 02/19/17 06:59 06:59 06:59 Intake Total 720 1770 Balance 720 1770 Result Diagrams: 02/18/17 05:15 02/18/17 05:15 Additional Labs: Accuchecks 02/18/17 02/17/17 02/17/17 05:26 20:11 16:58 POC Glucose 263 H 268 H 261 H 02/17/17 02/16/17 11:22 16:48 POC Glucose 291 H 226 H Phys Exam - Physical Examination Constitutional: NAD HEENT: PERRLA, moist MMs, sclera anicteric Neck: supple, full ROM Respiratory: no wheezing, clear to auscultation bilateral Cardiovascular: RRR HI Gastrointestinal: soft, non-tender, positive bowel sounds Musculoskeletal: edema present Neurological: non-focal, moves all 4 limbs Psychiatric: normal affect, A&O x 3 Deviation from normal: ERYTHEMA LLE Dx/Plan (1) Acute on chronic diastolic CHF (congestive heart failure) Code(s): I50.33 - ACUTE ON CHRONIC DIASTOLIC (CONGESTIVE) HEART FAILURE Status : Acute (2) Cellulitis and abscess of left leg Code(s): L03.116 - CELLULITIS OF LEFT LOWER LIMB; L02.416 - CUTANEOUS ABSCESS OF LEFT LOWER LIMB Status: Acute Comment: look streptococcal . On Rocephin and clinda for toxin inhibition. elevate and compress. Wound care consulted (3) Sepsis Code(s): A41.9 - SEPSIS, UNSPECIFIED ORGANISM Status: Acute Qualifiers: Sepsis type: Streptococcus group A Qualified Code(s): A40.0 - Sepsis due to streptococcus, group A (4) CKD (chronic kidney disease) stage 3, GFR 30-59 ml/min Code(s): N18.3 - CHRONIC KIDNEY DISEASE, STAGE 3 (MODERATE) Status: Chronic (5) Acute worsening of stage 3 chronic kidney disease Code(s): N18.3 - CHRONIC KIDNEY DISEASE, STAGE 3 (MODERATE) Status: Acute (6) Diabetes type 2, controlled Code(s): E11.9 - TYPE 2 DIABETES MELLITUS WITHOUT COMPLICATIONS Status: Chronic Qualifiers: Diabetes mellitus complication status: with hyperglycemia Diabetes mellitus long term care social worker insulin use: with long term care social worker use Qualified Code(s): E11.65 - Type 2 diabetes mellitus with hyperglycemia; Z79.4 - residential (current) use of insulin; Z79.4 - long term care social worker (current) use of insulin; Z79.4 - long term care social worker ( current) use of insulin; Z79.4 - long term care social worker (current) use of insulin (7) Morbid obesity with BMI of 40.0-44.9, adult Code(s): E66.01 - MORBID (SEVERE) OBESITY DUE TO EXCESS CALORIES; Z68.41 - BODY MASS INDEX (BMI) 40.0-44.9, ADULT Status: Chronic (8) UTI (urinary tract infection) Status: Resolved Comment: E.coli - Plan cont current plan of care, plan discussed w/ family, continue antibiotics IMPROVED CLINICALLY. CONT ANTIMICROBIALS PER IV. CHANGE TO P.O. UPON -: D/C * .
[2017-02-18] MEDS: Alogliptin Benzoate 6.25 MG TABLET PO SCH (08:36)
[2017-02-18] MEDS: Heparin 5,000 UNITS/ML VIAL SC SCH ×4 (08:36→22:24)
[2017-02-18] MEDS: HumaLOG 300 UNITS/3 ML VIAL SC PRN ×4 (08:36→21:41)
[2017-02-18] MEDS: Valsartan 80 MG TAB PO SCH (08:37)
[2017-02-18] MEDS: Hydrochlorothiazide 25 MG TAB PO SCH (08:37)
[2017-02-18] MEDS: Carvedilol 25 MG TAB PO SCH ×2 (08:37→21:40)
[2017-02-18] MEDS: Potassium Chloride 20 MEQ TAB PO SCH ×2 (08:37→17:23)
[2017-02-18] MEDS: Ferrous Sulfate 325 MG TAB PO SCH (08:38)
[2017-02-18] MEDS: Saccharomyces boulardii 250 MG CAP PO SCH (08:38)
[2017-02-18] MEDS: Pregabalin 75 MG CAP PO SCH ×2 (08:38→21:40)
[2017-02-18] MEDS: Metolazone 5 MG TAB PO SCH (08:38)
[2017-02-18] MEDS: Furosemide 40 MG TAB PO SCH ×2 (08:38→14:23)
[2017-02-19] MEDS: cefTRIAXone\\ROCEPHIN 1 GM in Syringe 10 ML IVPB SCH (00:28)
[2017-02-19] MEDS: Acetaminophen 325 MG TAB PO PRN ×2 (04:23→21:06)
[2017-02-19] MEDS: Clindamycin/D5W 600 MG in Premix Bag 1 BAG IVPB SCH ×3 (05:29→20:58)
[2017-02-19 05:51] LABS: Anion Gap 12 mmol/L (10-20); BUN (Urea Nitrogen) 35 mg/dL (9.8-20.1); Calc. Creatinine Clearance 42 mL/min (70-130); Carbon Dioxide 30 mmol/L (23-31); Chloride 97 mmol/L (98-107); Estimated GFR-MDRD 31
[2017-02-19] MEDS: Potassium Chloride 20 MEQ TAB PO SCH ×2 (09:25→17:01)
[2017-02-19] MEDS: Ferrous Sulfate 325 MG TAB PO SCH (09:25)
[2017-02-19] MEDS: Alogliptin Benzoate 6.25 MG TABLET PO SCH (09:26)
[2017-02-19] MEDS: Pregabalin 75 MG CAP PO SCH ×2 (09:26→20:56)
[2017-02-19] MEDS: Hydrochlorothiazide 25 MG TAB PO SCH (09:26)
[2017-02-19] MEDS: Carvedilol 25 MG TAB PO SCH ×2 (09:26→20:57)
[2017-02-19] MEDS: Heparin 5,000 UNITS/ML VIAL SC SCH ×3 (09:26→20:57)
[2017-02-19] MEDS: Metolazone 5 MG TAB PO SCH (09:26)
[2017-02-19] MEDS: Furosemide 40 MG TAB PO SCH (09:26)
[2017-02-19] MEDS: Saccharomyces boulardii 250 MG CAP PO SCH (09:27)
[2017-02-19] MEDS: Valsartan 80 MG TAB PO SCH (09:28)
--- NOTE | 2017-02-19 11:42 | PDOC.PN ---
- Subjective Encounter Start Date: 02/19/17 Encounter Start Time: 11:50 Subjective: Patient feeling a bit better today. Redness and warmth in left leg improved -: BP just dropped to 70s, but awake and alert. - Objective Resuscitation Status: Resuscitation Status FULL:Full Resuscitation MAR Reviewed: Yes Vital Signs & Weight: Vital Signs (12 hours) Temp Pulse Resp BP Pulse Ox 02/19/17 08:12 98.3 F 67 18 125/58 L 99 02/19/17 08:00 98.3 F 67 18 99 02/19/17 05:35 99.7 F H 02/19/17 04:20 93 L 02/19/17 04:00 101.1 F H 77 18 114/58 L 93 L 02/19/17 00:35 96 02/19/17 00:00 99.7 F H 80 20 115/52 L 96 Weight Weight 248 lb 14.4 oz I&O: 02/18/17 02/19/17 02/20/17 06:59 06:59 06:59 Intake Total 1770 1360 Balance 1770 1360 Result Diagrams: 02/18/17 05:15 02/19/17 04:56 Additional Labs: Accuchecks 02/19/17 02/19/17 02/18/17 11:15 06:15 20:31 POC Glucose 382 H 259 H 392 H 02/18/17 02/18/17 17:04 11:15 POC Glucose 318 H 280 H Phys Exam - Physical Examination Constitutional: NAD HEENT: moist MMs Respiratory: no wheezing, no rales, no rhonchi Cardiovascular: RRR Gastrointestinal: soft Bilateral edema to lower extremities, redness on LLE improved, still with large blister to left post ankle, draining clear fluid, no smell Psychiatric: normal affect, A&O x 3 Dx/Plan (1) Acute on chronic diastolic CHF (congestive heart failure) Code(s): I50.33 - ACUTE ON CHRONIC DIASTOLIC (CONGESTIVE) HEART FAILURE Status : Acute (2) Cellulitis and abscess of left leg Code(s): L03.116 - CELLULITIS OF LEFT LOWER LIMB; L02.416 - CUTANEOUS ABSCESS OF LEFT LOWER LIMB Status: Acute Comment: look streptococcal . On Rocephin and clinda for toxin inhibition. elevate and compress. Wound care consulted (3) Sepsis Code(s): A41.9 - SEPSIS, UNSPECIFIED ORGANISM Status: Acute Qualifiers: Sepsis type: Streptococcus group A Qualified Code(s): A40.0 - Sepsis due to streptococcus, group A Comment: Recurrent fever on 02/19, continue IV antibiotics (4) Acute worsening of stage 3 chronic kidney disease Code(s): N18.3 - CHRONIC KIDNEY DISEASE, STAGE 3 (MODERATE) Status: Acute (5) Diabetes type 2, controlled Code(s): E11.9 - TYPE 2 DIABETES MELLITUS WITHOUT COMPLICATIONS Status: Chronic Qualifiers: Diabetes mellitus complication status: with hyperglycemia Diabetes mellitus buttermilk drier operator insulin use: with half-way use Qualified Code(s): E11.65 - Type 2 diabetes mellitus with hyperglycemia; Z79.4 - group home (current) use of insulin; Z79.4 - group home (current) use of insulin; Z79.4 - group home ( current) use of insulin; Z79.4 - extermination inspector (current) use of insulin (6) Hypertension Code(s): I10 - ESSENTIAL (PRIMARY) HYPERTENSION Status: Chronic Qualifiers: Hypertension type: essential hypertension Qualified Code(s): I10 - Essential (primary) hypertension (7) UTI (urinary tract infection) Status: Resolved Comment: K. Pneumoniae, sensitive to Rocephin - Plan cont current plan of care, continue antibiotics Overdiuresis for CHF. Edema likely due to venous insufficiency. Hold Lasix -: and small fluid bolus. Still fevering to keep up IV abx until 24 after last -: fever. * . - Discharge Day Encounter end time: 12:10
[2017-02-19] MEDS: HumaLOG 300 UNITS/3 ML VIAL SC PRN ×3 (11:59→21:13)
[2017-02-19] MEDS ORDERED: Sodium Chloride 0.9% 250 ML IV SCH (12:15)
[2017-02-20] MEDS: cefTRIAXone\\ROCEPHIN 1 GM in Syringe 10 ML IVPB SCH (01:13)
[2017-02-20] MEDS: Clindamycin/D5W 600 MG in Premix Bag 1 BAG IVPB SCH (05:11)
[2017-02-20 05:21] LABS: Anion Gap 11 mmol/L (10-20); BUN (Urea Nitrogen) 42 mg/dL (9.8-20.1); Calc. Creatinine Clearance 36 mL/min (70-130); Calcium 9.1 mg/dL (7.8-10.44); Carbon Dioxide 30 mmol/L (23-31); Chloride 99 mmol/L (98-107); Estimated GFR-MDRD 25
[2017-02-20] MEDS: Acetaminophen 325 MG TAB PO PRN (06:26)
[2017-02-20 06:46] VITALS: BMI 25.4
[2017-02-20] MEDS: Cefdinir 300 MG CAP PO SCH ×2 (08:59→20:52)
[2017-02-20] MEDS: Pregabalin 75 MG CAP PO SCH ×2 (08:59→20:52)
[2017-02-20] MEDS: Metolazone 5 MG TAB PO SCH (08:59)
--- NOTE | 2017-02-20 08:59 | PDOC.PN ---
- Subjective Encounter Start Date: 02/20/17 Encounter Start Time: 08:30 Subjective: Mild fever this AM, better than yesterday. Overall feels much better. - Objective Resuscitation Status: Resuscitation Status FULL:Full Resuscitation MAR Reviewed: Yes Vital Signs & Weight: Vital Signs (12 hours) Temp Pulse Resp BP BP Pulse Ox 02/20/17 07:58 99 F 72 20 108/55 L 96 02/20/17 04:00 99.3 F 73 20 124/53 L 95 02/20/17 00:00 99.9 F H 73 18 96/47 L 95 Weight Admit Weight 252 lb Weight 148 lb 9.6 oz I&O: 02/19/17 02/20/17 02/21/17 06:59 06:59 06:59 Intake Total 1360 1999 Balance 1360 1999 Result Diagrams: 02/18/17 05:15 02/20/17 04:51 Additional Labs: Accuchecks 02/19/17 02/19/17 02/19/17 20:35 16:47 11:15 POC Glucose 381 H 453 H 382 H Phys Exam - Physical Examination Constitutional: NAD Respiratory: no wheezing, no rales, no rhonchi, clear to auscultation bilateral Cardiovascular: RRR Gastrointestinal: soft, positive bowel sounds 2+ bilateral MARGY to knees, redness improved on LLE Neurological: non-focal, moves all 4 limbs Psychiatric: normal affect, A&O x 3 Dx/Plan (1) Acute on chronic diastolic CHF (congestive heart failure) Code(s): I50.33 - ACUTE ON CHRONIC DIASTOLIC (CONGESTIVE) HEART FAILURE Status : Resolved (2) Cellulitis and abscess of left leg Code(s): L03.116 - CELLULITIS OF LEFT LOWER LIMB; L02.416 - CUTANEOUS ABSCESS OF LEFT LOWER LIMB Status: Acute Comment: Switching to oral Omnicef. Wound care consulted (3) Sepsis Code(s): A41.9 - SEPSIS, UNSPECIFIED ORGANISM Status: Acute Qualifiers: Sepsis type: Streptococcus group A Qualified Code(s): A40.0 - Sepsis due to streptococcus, group A Comment: Fever curve decreasing, will switch to oral abx (4) Acute worsening of stage 3 chronic kidney disease Code(s): N18.3 - CHRONIC KIDNEY DISEASE, STAGE 3 (MODERATE) Status: Acute Comment: will recheck (5) Diabetes type 2, controlled Code(s): E11.9 - TYPE 2 DIABETES MELLITUS WITHOUT COMPLICATIONS Status: Chronic Qualifiers: Diabetes mellitus complication status: with hyperglycemia Diabetes mellitus care home insulin use: with care home use Qualified Code(s): E11.65 - Type 2 diabetes mellitus with hyperglycemia; Z79.4 - long term care pharmacist (current) use of insulin; Z79.4 - long term care pharmacist (current) use of insulin; Z79.4 - long term care pharmacist ( current) use of insulin; Z79.4 - intermediate (current) use of insulin (6) Hypertension Code(s): I10 - ESSENTIAL (PRIMARY) HYPERTENSION Status: Chronic Qualifiers: Hypertension type: essential hypertension Qualified Code(s): I10 - Essential (primary) hypertension (7) UTI (urinary tract infection) Status: Resolved Comment: K. Pneumoniae, sensitive to Rocephin - Plan cont current plan of care, continue antibiotics, out of bed/ambulate Switch to oral abx. Off Lasix. Watch fever curve, WBC, and Creatinine. If -: continues to improve tomorrow july d/c home on oral medications. * . - Discharge Day Encounter end time: 08:55
[2017-02-20] MEDS: Alogliptin Benzoate 6.25 MG TABLET PO SCH (09:00)
[2017-02-20] MEDS: Potassium Chloride 20 MEQ TAB PO SCH ×2 (09:00→18:22)
[2017-02-20] MEDS: Ferrous Sulfate 325 MG TAB PO SCH (09:00)
[2017-02-20] MEDS: Carvedilol 25 MG TAB PO SCH ×2 (09:01→20:52)
[2017-02-20] MEDS: Valsartan 80 MG TAB PO SCH (09:02)
[2017-02-20] MEDS: Saccharomyces boulardii 250 MG CAP PO SCH (09:03)
[2017-02-20] MEDS: Hydrochlorothiazide 25 MG TAB PO SCH (09:03)
[2017-02-20] MEDS: Heparin 5,000 UNITS/ML VIAL SC SCH ×3 (09:03→20:52)
[2017-02-20] MEDS: HumaLOG 300 UNITS/3 ML VIAL SC PRN ×3 (14:56→20:53)
[2017-02-21] MEDS: Acetaminophen 325 MG TAB PO PRN (00:04)
[2017-02-21 05:23] LABS: Anion Gap 13 mmol/L (10-20); BUN (Urea Nitrogen) 44 mg/dL (9.8-20.1); Calc. Creatinine Clearance 22 mL/min (70-130); Calcium 9.1 mg/dL (7.8-10.44); Carbon Dioxide 27 mmol/L (23-31); Chloride 100 mmol/L (98-107); Estimated GFR-MDRD 26
[2017-02-21] MEDS: Valsartan 80 MG TAB PO SCH (09:09)
[2017-02-21] MEDS: Hydrochlorothiazide 25 MG TAB PO SCH (09:10)
[2017-02-21] MEDS: Cefdinir 300 MG CAP PO SCH (09:10)
[2017-02-21] MEDS: Alogliptin Benzoate 6.25 MG TABLET PO SCH (09:11)
[2017-02-21] MEDS: Potassium Chloride 20 MEQ TAB PO SCH (09:11)
[2017-02-21] MEDS: Metolazone 5 MG TAB PO SCH (09:11)
[2017-02-21] MEDS: Carvedilol 25 MG TAB PO SCH (09:11)
[2017-02-21] MEDS: Ferrous Sulfate 325 MG TAB PO SCH (09:12)
[2017-02-21] MEDS: Heparin 5,000 UNITS/ML VIAL SC SCH (09:12)
[2017-02-21] MEDS: Saccharomyces boulardii 250 MG CAP PO SCH (09:12)
[2017-02-21] MEDS: Pregabalin 75 MG CAP PO SCH (09:12)
--- NOTE | 2017-02-21 11:12 | DIS ---
DISCHARGE DIAGNOSES: 1. Lower extremity cellulitis. 2. Acute on chronic diastolic heart failure. 3. Hypertension. 4. Urinary tract infection. 5. Diabetes. 6. Elevated troponin secondary to demand ischemia. 7. Morbid obesity. 8. Physical deconditioning. 9. Chronic kidney disease. 10. Anemia. HOSPITAL COURSE: The patient was in the hospital, the patient was started on IV antibiotics for the lower extremity cellulitis. The patient was also started on IV Lasix due to her acute on chronic rob stolic heart failure. She was also placed on blood pressure medications to improve her overall blood pressure which was high when she initially came in. She also was seen to have elevated troponins, w hich was thought to be due to demand ischemia, therefore not requiring any catheterization. The minal ent also had a urinary tract infection for which was being treated with IV antibiotics that was being treated for lower extremity cellulitis. With measures in place, patient improved significantly. He r blood pressure had improved. Her shortness of breath also improved as well as her cellulitis. PT, OT had also seen the patient while in house due to the patient's physical deconditioning. The patie nt was hemodynamically stable and symptoms had improved. Because the patient was doing significantly better with the measures that were in place, her IV Lasix was switched to p.o. diuretic as well as c ontinuing her blood pressure medications and switching her IV antibiotics to p.o. antibiotics. Becdebi kim there was nothing else that needed to be addressed, no new issues had arose, we were comfortable d ischarging the patient home on the new medications including for the heart failure as well as her ant ibiotics. She was instructed to follow up with her primary care physician outpatient for which she s tates that she would in 1 week. She states that she lives at home with family. Therefore, she will be discharged there. All questions were answered prior to discharge. DISCHARGE CONDITION: Much improved from when she first came. DISCHARGE ACTIVITY: As tolerated. DISCHARGE DIET: Diabetic diet. DISCHARGE MEDICATIONS: Please see discharge medication list. FOLLOWUP: The patient will follow with primary care physician in 1 week. Discharge planning took approximately 30 minutes.
[2017-02-21 12:41] VITALS: BP 107/58; TEMP 97.9
[2017-02-21] MEDS: HumaLOG 300 UNITS/3 ML VIAL SC PRN (13:09)
--- NOTE | 2017-03-05 06:49 | PQF ---
LUANA HULL SALIM NOORJIBHAI MD [id number] [facility] [id number] CLINICAL DOCUMENTATION CLARIFICATION FORM: POST DISCHARGE Addendum to original discharge summary date: ____ Late entry note date: __ LUANA HULL [id number] DOUGLAS REED MD PLEASE DOCUMENT YOUR RESPONSE BELOW PLEASE FAX RESPONSE BACK TO YOUR INPUT IS NEEDED TO CORRECTLY CODE A DIAGNOSIS FOR YOUR PATIENT. DATE: 03/05/2017 ATTN: DR. REED Please exercise your independent, professional judgment in responding to the clarification form. Clinical indicators are provided on the bottom of this form for your review Please check appropriate box(s) to clarify if the following diagnosis has been ruled in our ruled out: SEPSIS [ ] Ruled in diagnosis [ ] Continue to treat [ ] Resolved [ ] Ruled out diagnosis [ ] Cannot rule out diagnosis [ ] Other diagnosis [ x ] Unable to determine In addition, please specify: Present on Admission (POA): [ ] Yes [ ] No [ x ] Unable to determine For continuity of documentation, please document condition throughout progress notes and discharge summary. Thank You. CLINICAL INDICATORS - SIGNS / SYMPTOMS / LABS RISK FACTORS To support diagnosis Progress notes dated 02/20, 02/19, 02/18 state sepsis due to streptococcus Left lower extremity cellulitis UTI fever TREATMENTS IV antibiotics (This form is maintained as a part of the permanent medical record) 2014 [employer]. All Rights Reserved CHICHI [email or web address] [phone] ANNALISE
== END 2017-02-21 13:54 | disposition home health service (06) | DRG 291 ==
LOC: ERS 17:57 → 2NO 21:10
PROVIDERS: ADMIT Internal Medicine; ATTEND Internal Medicine
DX: I13.0 Hypertensive heart and chronic kidney disease with heart failure and stage 1 through stage 4 chronic kidney disease, or unspecified chronic kidney disease (principal); I50.33 Acute on chronic diastolic (congestive) heart failure; E11.22 Type 2 diabetes mellitus with diabetic chronic kidney disease; I24.8 Other forms of acute ischemic heart disease; Z68.41 Body mass index [BMI] 40.0-44.9, adult; E11.40 Type 2 diabetes mellitus with diabetic neuropathy, unspecified; L02.416 Cutaneous abscess of left lower limb; N39.0 Urinary tract infection, site not specified; L03.116 Cellulitis of left lower limb; N18.3 Chronic kidney disease, stage 3 (moderate); E11.65 Type 2 diabetes mellitus with hyperglycemia; E66.01 Morbid (severe) obesity due to excess calories; E78.5 Hyperlipidemia, unspecified; D64.9 Anemia, unspecified; M19.90 Unspecified osteoarthritis, unspecified site; Z79.4 Long term (current) use of insulin; B96.1 Klebsiella pneumoniae [K. pneumoniae] as the cause of diseases classified elsewhere; I87.2 Venous insufficiency (chronic) (peripheral)
CPT/HCPCS: 36415; 36416; 71010; 80048; 80053; 81003; 81015; 82553; 83605; 83690; 83735; 83880; 84484; 84550; 85025; 85610; 85730; 86140; 87040; 87077; 87086; 87186; 90471; 90682; 93005; 93306; 93798; 96365; 96367; A4216; G0008; G8978-GP-CL; G8979-GP-CJ; G8987-GO-CL; G8988-GO-CJ; J0696; J1644; J1940; J2543; J3370; J3480; J3490; J7050; Q2036

== ENCOUNTER 2017-02-26 17:43 | Inpatient (IN) | payer MEDICARE ==
[2017-02-26 18:23] LABS: #Eosinphils 0.3 thou/uL (0.0-0.7); #Lymphocytes 1.1 thou/uL (1.20-3.40); #Monocytes 0.6 thou/uL (0.11-0.59); #Neutrophils 5.2 thou/uL (1.40-6.50); %Basophils 0.5 % (0.0-1.0); %Lymphocytes 15.2 % (21.0-51.0); Hematocrit 31.3 % (36.0-47.0); Red Blood Cell (RBC) Count 3.54 mill/uL (4.20-5.40); White Blood Cell (WBC) Count 7.2 thou/uL (4.8-10.8)
[2017-02-26 18:38] LABS: Lactic Acid - Sepsis 1.1 mmol/L (0.5-2.2)
[2017-02-26 18:41] LABS: ALT (SGPT) 22 U/L (8-55); AST (SGOT) 20 U/L (5-34); Alkaline Phosphatase 85 U/L (40-150); Anion Gap 15 mmol/L (10-20); BUN (Urea Nitrogen) 48 mg/dL (9.8-20.1); Bilirubin, Total 0.3 mg/dL (0.2-1.2); Calc. Creatinine Clearance 0 mL/min (70-130); Calcium 10.3 mg/dL (7.8-10.44); Carbon Dioxide 26 mmol/L (23-31); Chloride 98 mmol/L (98-107); Estimated GFR-MDRD 18; Globulin 5.2 g/dL (2.4-3.5); Protein, Total 8.3 g/dL (6.0-8.3)
--- NOTE | 2017-02-26 19:11 | RAD ---
LEFT ANKLE 3 VIEWS: Date: 02/26/17 HISTORY: Wound. COMPARISON: None. FINDINGS: There is a soft tissue ulcer on the posterior aspect of the tibia and fibula. No underlying periostit is or erosions are seen. Bones are osteopenic. Severe soft tissue swelling. Soft tissue phleboliths are present. There is likely a flatfoot deformity. Moderate midfoot degenerative disease. IMPRESSION: Posterior distal tibia/fibula soft tissue wound without evidence of osteomyelitis. POS: ROGER
[2017-02-26] MEDS ORDERED: Insulin Regular 300 UNITS/3 ML VIAL ONE (22:02)
[2017-02-26 23:10] LABS: Troponin I 0.039 ng/mL (< 0.028)
--- NOTE | 2017-02-26 23:46 | PDOC.EVN ---
Event Note - Event Note Event Note: 140559 H&P dictated 1. Left leg cellulitis 2. DM type 2 uncontrolled 3. h/o htn 4. liliya, cKD STAGE 3 4. Chronic diastolci CHF PLAN: SEE ORDERS
[2017-02-27] MEDS ORDERED: Ondansetron ODT 4 MG TAB SL PRN (00:09)
[2017-02-27] MEDS ORDERED: Ondansetron HCl/PF 4 MG/2 ML Vial IVP PRN (00:09)
[2017-02-27] MEDS ORDERED: Sodium Chloride 0.9% 1,000 ML IV SCH (00:15)
[2017-02-27] MEDS ORDERED: VANCOMYCIN IVPB PRN (00:43)
[2017-02-27] MEDS: Piperacillin/Tazobactam 4.5 GM in Sodium Chloride 0.9% 100 ML IVPB SCH ×2 (01:06→12:27)
[2017-02-27] MEDS: Sodium Chloride 0.9% 1,000 ML IV SCH ×3 (01:06→18:09)
[2017-02-27 02:16] LABS: Troponin I 0.036 ng/mL (< 0.028)
[2017-02-27] MEDS ORDERED: Dextrose 50% Abboject 50 ML SYRINGE IVP PRN (02:36)
[2017-02-27] MEDS ORDERED: Dextrose 5% in Water 1,000 ML IV PRN (02:36)
[2017-02-27 05:39] LABS: Band 1 % (5-11); Mean Platelet Volume 7.6 fL (7.4-10.4); Neutrophil 70 % (42-75); Red Blood Cell (RBC) Count 3.41 mill/uL (4.20-5.40); White Blood Cell (WBC) Count 7.3 thou/uL (4.8-10.8)
[2017-02-27 05:49] LABS: ALT (SGPT) 17 U/L (8-55); AST (SGOT) 18 U/L (5-34); Alkaline Phosphatase 70 U/L (40-150); Anion Gap 14 mmol/L (10-20); BUN (Urea Nitrogen) 42 mg/dL (9.8-20.1); Bilirubin, Total 0.3 mg/dL (0.2-1.2); Calc. Creatinine Clearance 32 mL/min (70-130); Calcium 9.7 mg/dL (7.8-10.44); Carbon Dioxide 22 mmol/L (23-31); Chloride 104 mmol/L (98-107); Estimated GFR-MDRD 22; Globulin 4.5 g/dL (2.4-3.5); Protein, Total 7.2 g/dL (6.0-8.3)
[2017-02-27 05:52] LABS: Troponin I 0.042 ng/mL (< 0.028)
--- NOTE | 2017-02-27 06:12 | HP ---
DATE OF ADMISSION: 02/26/2017 CHIEF COMPLAINT: Left ankle wound. HISTORY OF PRESENT ILLNESS: The patient is an 81-year-old female with a past medical history of hypertension, diastolic heart failure, diabetes mellitus type 2, UTI, recently got discharged from the hospital on 02/21/2017 with diagnosis of left ankle wound. At the time of discharge, patient was diagnosed having left ankle abscess. The patient was discharged on antibiotics also, advised to follow up with wound care. The patient went to wound care because she started having drainage on the left ankle, so patient was sent from the wound care center to the hospital again. The patient complains of constant pain on the left leg 10/10, worsens with movement, worsens with touch, also. The patient also complains of some drainage on the left leg and also complains of worsening erythema on the left lower extremity. Denies any fever, denies any chills, denies any cough, denies sputum production. PAST MEDICAL HISTORY: As per HPI. PAST SURGICAL HISTORY: Appendectomy, hysterectomy. SOCIAL HISTORY: Denies smoking, denies alcohol, denies any drugs. ALLERGIES: Reviewed. MEDICATIONS: Reviewed. FAMILY HISTORY: Positive for heart problems. REVIEW OF SYSTEMS: Constitutional: Denies any fever, denies any chills. Eyes : Denies any vision problems. Ears: Denies any hearing loss. Neck: Denies any neck pain. Cardiovascular system: Denies any chest pain, denies any palpitations. Respiratory system: Denies any cough, denies sputum production. Gastrointestinal: Denies nausea, vomiting. Integumentary: Positive for left lower extremity wound and left lower extremity erythema. Cranial nerve system: Denies syncope, denies lightheadedness. Psychiatric: Denies depression or anxiety. Musculoskeletal: Positive for left leg wound. All other review of systems are reviewed and are negative. PHYSICAL EXAMINATION: CONSTITUTIONAL/VITAL SIGNS: At the time of H and P performed, blood pressure is 110/70, pulse ox 97%, afebrile, respiratory rate 18. GENERAL APPEARANCE: The patient appears tired. HEENT: Anterior nares patent. Nose normal. Ears normal. NECK: Supple. No JVD. CARDIOVASCULAR SYSTEM: S1, S2 present. Positive for systolic murmur, no rubs, no gallops. Regular rate and rhythm. RESPIRATORY SYSTEM: No wheezing, no rhonchi. Breath sounds present bilaterally. GASTROINTESTINAL: Abdomen soft, nontender, no guarding, no organomegaly, no masses felt. MUSCULOSKELETAL: Left leg, positive for wound present. Positive for the drainage present. Left lower extremity erythema present, warm to touch. Positive for bilateral lower extremity edema present. CRANIAL NERVOUS SYSTEM: Awake, follows commands. Speech clear. PSYCHIATRIC: Mood is appropriate at this time. INTEGUMENTARY: Positive for left leg erythema. LABORATORY DATA: At the time of H and P performed, white count is 7.2, hemoglobin 9.7, platelet count is 386. BMP showed sodium of 134, creatinine 3.03, baseline creatinine is around 2, BUN 48, potassium 4.8, CO2 of 26. Ankle x-ray, no obvious fractures seen. There is distal tibia and fibula soft tissue swelling present. ASSESSMENT AND PLAN: The patient is an 81-year-old female: 1. Left leg cellulitis and abscess. Plan to start the patient on broad- spectrum antibiotics. Plan to consult ID to evaluate the patient. Plan to consult Ortho also to evaluate the patient. 2. Diabetes type 2, uncontrolled. We will monitor her blood sugars closely and we will go ahead and give some insulin IV in the ER. We will continue IV fluid. Check blood sugar in 2 hours. We will admit the patient to the tele floor. 3. Acute kidney injury with chronic kidney disease, stage 3 to 4. Monitor creatinine closely. Gentle IV fluids, repeat BMP. Plan to place a Mcgovern catheter. Plan to consult Nephrology to evaluate the patient. 4. History of hypertension. Monitor blood pressure. Continue blood pressure medications. The case was discussed in detail with the patient and patient's daughter also. ANNALISE
[2017-02-27] MEDS ORDERED: Vancomycin HCl 1.5 GM in Sodium Chloride 0.9% 250 ML 300 ML IVPB SCH (09:00)
[2017-02-27] MEDS: Heparin 5,000 UNITS/ML VIAL SC SCH ×3 (09:18→21:11)
[2017-02-27] MEDS: Vancomycin HCl 1.25 GM in Sodium Chloride 0.9% 250 ML 250 ML IVPB SCH (09:20)
--- NOTE | 2017-02-27 10:33 | PDOC.PN ---
- Subjective Encounter Start Date: 02/27/17 Encounter Start Time: 12:00 Subjective: Patient reports leg feeling better since resumption of IV abx yesterday. -: This AM redness running up let that family noticed was gone. - Objective MAR Reviewed: Yes Vital Signs & Weight: Vital Signs (12 hours) Temp Pulse Resp BP BP Pulse Ox 02/27/17 08:00 97.8 F 66 18 148/60 H 97 02/27/17 04:00 98.8 F 68 18 142/64 H 96 02/27/17 01:50 98.1 F 71 18 127/59 L 96 02/27/17 00:21 98.6 F 68 16 120/63 96 Weight Weight 249 lb I&O: 02/26/17 02/27/17 02/28/17 06:59 06:59 06:59 Intake Total 344 Balance 344 Result Diagrams: 02/27/17 04:34 02/27/17 04:34 Additional Labs: Accuchecks 02/27/17 02/27/17 02/27/17 09:03 04:48 00:30 POC Glucose 267 H 254 H 347 H 02/26/17 02/26/17 23:09 22:35 POC Glucose 494 H Greater than 550 H* Phys Exam - Physical Examination Constitutional: NAD HEENT: moist MMs Respiratory: no wheezing, no rales, no rhonchi Cardiovascular: RRR Gastrointestinal: soft, positive bowel sounds Musculoskeletal: edema present left lower leg with ulcer deep into tissues, 1cm across mouth, no active pu s draining, no surrounding redness noticed at this time Psychiatric: normal affect, A&O x 3 Dx/Plan (1) Cellulitis and abscess of left leg Code(s): L03.116 - CELLULITIS OF LEFT LOWER LIMB; L02.416 - CUTANEOUS ABSCESS OF LEFT LOWER LIMB Status: Acute (2) Diabetes mellitus type 2 in obese Code(s): E11.69 - TYPE 2 DIABETES MELLITUS WITH OTHER SPECIFIED COMPLICATION; E66.9 - OBESITY, UNSPECIFIED Status: Chronic Comment: uncontrolled (3) CKD (chronic kidney disease) stage 3, GFR 30-59 ml/min Code(s): N18.3 - CHRONIC KIDNEY DISEASE, STAGE 3 (MODERATE) Status: Chronic (4) Secondary hyperparathyroidism (of renal origin) Code(s): N25.81 - SECONDARY HYPERPARATHYROIDISM OF RENAL ORIGIN Status: Chronic (5) Chronic diastolic (congestive) heart failure Code(s): I50.32 - CHRONIC DIASTOLIC (CONGESTIVE) HEART FAILURE Status: Chronic (6) Hypertension Code(s): I10 - ESSENTIAL (PRIMARY) HYPERTENSION Status: Chronic Qualifiers: Hypertension type: essential hypertension Qualified Code(s): I10 - Essential (primary) hypertension (7) Morbid obesity with BMI of 40.0-44.9, adult Code(s): E66.01 - MORBID (SEVERE) OBESITY DUE TO EXCESS CALORIES; Z68.41 - BODY MASS INDEX (BMI) 40.0-44.9, ADULT Status: Chronic - Plan cont current plan of care, continue antibiotics ID consulted for antibiotics recommendations. Awaiting bacterial culture. -: General surgery consulted about ulcer to decide if sharp debridement needed * . - Discharge Day Encounter end time: 12:30
[2017-02-27] MEDS: Acetaminophen 325 MG TAB PO PRN ×2 (11:01→21:12)
[2017-02-27] MEDS: Insulin Regular 300 UNITS/3 ML VIAL SC PRN ×2 (12:30→18:10)
--- NOTE | 2017-02-27 18:44 | CON ---
DATE OF CONSULTATION: 02/27/2017 REQUESTING PHYSICIAN: Dr. Pack. HISTORY OF PRESENT ILLNESS: This is an 81-year-old -[place] woman with history of diastolic congestive heart failure, essential hypertension and diabetes mellitus. The patient was recently adm itted for left lower extremity venous stasis cellulitis for which she received IV antibiotics and sub sequently discharged on 02/21/2017. The patient was readmitted today with apparent purulent drainage from her left lower extremity in the posterior aspect of the left leg. I was asked to evaluate the patient to exclude any surgically amenable disease. At the time of my evaluation, the patient is awake and alert. She reports slight left lower extremity pain, not in excess of chronic pain. She denies any fevers or chills. PAST MEDICAL HISTORY: Significant for chronic diastolic congestive heart failure, type 2 diabetes me llitus, essential hypertension, recurrent urinary tract infections. Other pertinent past medical include also the most recent left lower extremity venous stasis cellulit is. SURGICAL HISTORY: Pertinent for appendectomy and hysterectomy. SOCIAL HISTORY: The patient denies any cigarette smoking, ethanol or illicit drug abuse. FAMILY HISTORY: Noncontributory for this patient's age. ALLERGIES: The patient denies any known drug allergies. REVIEW OF SYSTEMS: Ten point review of systems essentially unremarkable except for as stated in past medical history and chief complaint. PHYSICAL EXAMINATION: GENERAL: This reveals an 81-year-old normally-developed woman who is otherwise coherent and interact kunal. The patient is appears to be in no acute distress at the time of my evaluation. VITAL SIGNS: Includes blood pressure 142/64, pulse 68, respiration rate 18, temperature is 98.8 degr ees Fahrenheit. Oxygen saturation is 96% on room air. HEART: Reveals regular rate and rhythm, no murmurs or gallops auscultated. LUNGS: Clear to auscultation bilaterally. Breathing is regular and unlabored. ABDOMEN: Soft and obese with no tenderness to palpation. EXTREMITIES: Reveals 3+ left lower extremity pitting edema. I also noted is that 2 x 2 cm venous sta sis ulcer in the posterior aspect of the left leg distal 2/3. There is minimum purulence from this wound. There is a surrounding skin discrimination. The patient has a negative Homans sign. Left foot is warm to touch, though pulses are nonpalpable. Right lower extremity reveals 2+ pedal pulses. NEUROLOGIC: Reveals no focal deficits present. PERTINENT LABORATORY FINDINGS: Includes a CBC with 7300 white blood cells, hemoglobin 9.5, hematocri t is 30.0, platelet count is 349,000. Metabolic profile today includes sodium 136, potassium is 4.3, chloride is 104, bicarbonate 22, BUN 4 2, creatinine is 2.52, glucose 257, total bilirubin 0.3, AST and ALT normal at 18 and 17 respectively . IMPRESSIONS: 1. 2 x 2 cm left lower extremity venous stasis ulcer with no evidence of abscess. 2. Chronic renal insufficiency. 3. Chronic diastolic congestive heart failure. 4. History of type 2 diabetes mellitus. RECOMMENDATIONS: Continue with local wound care. There is no acute surgical indication for this patient at this time. Duplex sonogram of the left lower extremity obtained on 02/15/2017 and was negative for any DVT. Continue with chemical venous thromboembolism prophylaxis. Above findings and recommendations has been discussed with the patient in the presence of his nurse. I have answered all her questions. Thank you again, Dr. Dykes, for allowing me the opportunity to participate in the care of this patien t.
--- NOTE | 2017-02-27 20:27 | ULT ---
LEFT LOWER EXTREMITY ARTERIAL DOPPLER 02/27/17 HISTORY: Ulcer. COMPARISON: None. TECHNIQUE: Real time ford scale, color doppler and spectral analysis of the left lower extremity arterial system is performed with a linear transducer. FINDINGS: There is abnormally elevated peak systolic velocities throughout the left lower extremity arterial sy stem although there is flow throughout the trifurcation into the foot. There is monophasic waveform t hroughout the lower extremities. Common femoral artery peak systolic velocity of 251 cm/s. Deep femor al artery peak systolic velocity of 254 cm/s. Popliteal artery peak systolic velocity of 111 cm/s. Th e anterior tibial artery has a peak systolic velocity of 70 cm/s. Posterior tibial artery has a peak systolic velocity of 60 cm/s. Dorsalis pedis has monophasic flow with peak systolic velocity of 106 c m/s. There is spectral broadening throughout the lower extremity. IMPRESSION: Markedly abnormal elevated peak systolic velocities throughout the left lower extremities suggest sev ere vascular disease. There is, however, flow to the foot. Abnormal elevation of the dorsalis pedis artery suggests hemodynamically significant stenosis. Conven tional angiogram may be beneficial. POS: ROGER
--- NOTE | 2017-02-27 21:00 | CON ---
DATE OF CONSULTATION: 02/27/2017 REASON FOR CONSULTATION: Right leg inflammatory changes. HISTORY OF PRESENT ILLNESS: An 81-year-old patient who has a history of cardiomyopathy with diastolic dysfunction, chronic renal insufficiency stage 3- 4 and type 2 diabetes mellitus, and hypertension, who was last admitted to this hospital a few days before this third admission. At that time, she presented with worsening bilateral lower extremity edema and blisters. One of the extremities reportedly the left was more erythematous and the other in tender. There was associated with dyspnea with exertion. The impression was then cellulitis, once she was treated with vancomycin and Rocephin as well as acute on chronic diastolic congestive heart failure, which was treated with Lasix, fluid restriction. Cultures from urine showed Klebsiella pneumonia, broad susceptibility profile. Other blood cultures were negative. The patient was discharged on 02/21/2017 about almost one week after initial admission. List of discharge medications were not placed in the note. About 5 days after this discharge, patient is readmitted because of worsening left ankle pain with noticeable ulcer at the posterior aspect of the distal left ankle. REVIEW OF SYSTEMS: Currently, the patient is having moderate pain at the site, mild dyspnea, no chest pain, no headaches or visual symptoms, sore throat, odynophagia, dysphagia, no vomiting, no abdominal pain or diarrhea. Voiding without difficulty. PAST MEDICAL HISTORY: Type 2 diabetes, likely ischemic cardiomyopathy with diastolic dysfunction, neuropathy, hypertension, dyslipidemia, and obesity. PAST SURGICAL HISTORY: Appendectomy, hysterectomy. SOCIAL HISTORY: Never a smoker. Actually according to the daughter, she did smoke, but quit more than 20 years ago. She lives in [place] with family. FAMILY HISTORY: Noncontributory. ALLERGIES: None. CURRENT MEDICATION LIST: Tylenol, dextrose, glucagon, heparin, insulin, Zosyn, and vancomycin. PHYSICAL EXAMINATION: VITAL SIGNS: T-max 98.8, blood pressure 140/64, pulse 68, respirations 13-18, and O2 saturation 97%. GENERAL: Appears in no distress, although every time that the left leg is lifted from the bed, she experiences quite a significant amount of pain. SKIN: Shows the area of exfoliation of the skin with blister in 1.5 cm area of ulceration, which is quite deep. I could not probe bone. The base is kind of a dark red. No undermining noticeable. The skin around the ulcer is smooth and a little bit red, discoloration, quite tender to palpation. There is 2+ edema in lower extremities. Pulses are 1+ in dorsalis pedis. She is able to move the lower extremities with marked limitation. HEENT: Ocular movements are conjugate. Oral cavity with still a few teeth remaining in place with quite a bit of decay and gum disease. NECK: Supple, no jugular venous distention. LUNGS: With symmetric air entry, basilar crackles. HEART: S1, S2, regular rate and diminished heart sounds. Soft aortic murmur. ABDOMEN: Has quite prominent panniculus, but no evidence of ascites, no organomegaly or bladder distention. No joint inflammatory activity noted. PSYCHIATRIC: She is awake, oriented, follows commands. LABORATORY DATA: White cell count 7.2, hemoglobin 9.7, MCV 88, platelets 386 with 72% neutrophils. Sodium 136, creatinine 2.52. Baseline creatinine lowest has been was 1.63 a few days ago. Glucose 257. Transaminases normal, alkaline phosphatase 70. Troponin 0.036, albumin 2.7, globulin 4.5. The last urinalysis is from a few days ago and it showed trace protein, 11-20 WBCs. Echocardiogram report with 60-65% LV function, trace tricuspid regurge, tibia and fibula x-ray from 02/15/2017 with no acute osseous abnormalities noted. There was a vascular ultrasound from 02/15/2017, which was a venous Doppler with no evidence of DVT. ASSESSMENT: 1. Diabetes type 2. 2. Ischemic cardiomyopathy with diastolic dysfunction 3. Venous insufficiency of lower extremity associated with edema. 4. Cellulitis left leg with a wound in the posterior aspect of the left leg. In addition to the usual organisms involved in this type of process, one should also be concerned with GNR particularly P. aeruginosa. This could be confluence of arterial and venous insufficiency plus superimposed cellulitis. A vasculitis is less likely fungal or mycobacterial infection less likely as well. DISCUSSION: At this time, readmission is probably due to the insufficient nature of the duration of the antimicrobial therapy plus the lack of compression. Also need to evaluate the arterial supply to the lower extremities. This may be a complicating factor in the healing process. I would probably manage without any further surgical intervention at this time, calciphylaxis is not likely. Continue vancomycin and Zosyn for now and eventually transitioned to cephalosporin for treatment, could transition to cefepime for example, but we will keep vancomycin since we do not have microbiology evaluation yet and the possibility of MRSA involvement is present. MTDD
[2017-02-27] MEDS: Insulin Detemir 100 UNITS/ML 10 UNITS in Pre-Filled Syringe 1 EACH SC SCH (21:11)
[2017-02-28] MEDS: Piperacillin/Tazobactam 4.5 GM in Sodium Chloride 0.9% 100 ML IVPB SCH ×2 (00:41→17:36)
[2017-02-28] MEDS: Acetaminophen 325 MG TAB PO PRN ×3 (04:57→19:15)
[2017-02-28 05:13] LABS: #Eosinphils 0.4 thou/uL (0.0-0.7); #Lymphocytes 1.5 thou/uL (1.20-3.40); #Monocytes 0.5 thou/uL (0.11-0.59); #Neutrophils 5.8 thou/uL (1.40-6.50); %Basophils 0.5 % (0.0-1.0); %Lymphocytes 17.8 % (21.0-51.0); %Monocytes 6.4 % (0.0-10.0); Hematocrit 29.3 % (36.0-47.0); Red Blood Cell (RBC) Count 3.34 mill/uL (4.20-5.40); White Blood Cell (WBC) Count 8.3 thou/uL (4.8-10.8)
[2017-02-28 05:27] LABS: Anion Gap 12 mmol/L (10-20); BUN (Urea Nitrogen) 33 mg/dL (9.8-20.1); Calc. Creatinine Clearance 33 mL/min (70-130); Calcium 9.5 mg/dL (7.8-10.44); Carbon Dioxide 24 mmol/L (23-31); Chloride 107 mmol/L (98-107); Estimated GFR-MDRD 23
[2017-02-28] MEDS: Sodium Chloride 0.9% 1,000 ML IV SCH ×2 (05:37→20:19)
--- NOTE | 2017-02-28 06:27 | CON ---
DATE OF CONSULTATION: 02/27/2017 CONSULTING PHYSICIAN: Dr. Julio REASON FOR CONSULTATION: Acute kidney injury on chronic kidney disease. REASON FOR ADMISSION: Left ankle. HISTORY OF PRESENT ILLNESS: An 81-year-old female with history of type 2 diabetes, CKD, hypertension who came to the hospital with above complaints. Nephrology is consulted for elevated creatinine. No nausea, vomiting, no chest pain, no palpitation. She is complaining of left leg pain. PAST MEDICAL HISTORY: Positive for type 2 diabetes, CHF, hypertension, CKD. PAST SURGICAL HISTORY: Appendectomy, hysterectomy. HOME MEDICATIONS: Ferrous sulfate, Coreg, aspirin, Lyrica, Zaroxolyn, Lasix, Omnicef, Crestor, Janumet, losartan, hydrochlorothiazide. ALLERGIES: No known drug allergies. SOCIAL HISTORY: No smoking, alcohol or illicit drug abuse. FAMILY HISTORY: No history of any kidney disease. REVIEW OF SYSTEMS: The following complete review of systems was negative, unless otherwise mentioned in the HPI or below: CONSTITUTIONAL: Weight loss or gain, ability to conduct usual activities. SKIN: Rash, itching. EYES: Double vision, pain. ENT/MOUTH: Nose bleeding, neck stiffness, pain, tenderness. CARDIOVASCULAR: Palpitations, dyspnea on exertion, orthopnea. RESPIRATORY: Shortness of breath, wheezing, cough, hemoptysis, fever or night sweats. GASTROINTESTINAL: Poor appetite, abdominal pain, heartburn, nausea, vomiting, constipation, or diarrhea. GENITOURINARY: Urgency, frequency, dysuria, nocturia. MUSCULOSKELETAL: Pain, swelling. NEUROLOGIC/PSYCHIATRIC: Anxiety, depression. ALLERGY/IMMUNOLOGIC: Skin rash, bleeding tendency. PHYSICAL EXAMINATION: GENERAL: This is a well-built female in no apparent distress. VITAL SIGNS: Temperature 97.7, pulse 60, respiratory rate 18, blood pressure 140/64. Musculoskeletal : No tenderness, No edema HEENT: Atraumatic normocephalic Neck: Supple Cardiovascular: S1S2 heard, Rate and rhythm regular Respiratory: Clear to auscultation Gastrointestinal: Abdomen is soft Dermatologic : No skin rash Neurologic: Alert and awake and oriented X3 No focal neurologic deficits. Moving all the extremities. Psychiatric: Mood and affect normal LABORATORY DATA: Potassium is 4.3, BUN 42, creatinine is 2.5. ASSESSMENT AND PLAN: 1. Acute kidney injury on chronic kidney stage 5. Renal function is getting better. On admission, her creatinine was 3.03. Her baseline is around 1.6 to 1.9. Continue to monitor. Avoid nephrotoxins. Continue hydration as tolerated. We will follow. Hold hydrochlorothiazide and at this point. Continue antibiotics. 2. Continue supportive care. 3. Hypertension 4. Edema, controlled. 5. Anemia of chronic disease. Plan is to monitor renal function closely. Avoid nephrotoxins and hydration as tolerated. MTDD
--- NOTE | 2017-02-28 07:59 | PDOC.PN ---
- Subjective Encounter Start Date: 02/28/17 Encounter Start Time: 08:00 Subjective: Pain improved in left lower extremity. No fever. No new symptoms. - Objective MAR Reviewed: Yes Vital Signs & Weight: Vital Signs (12 hours) Temp Pulse Resp BP Pulse Ox 02/28/17 04:30 94 L 02/28/17 04:00 99 F 69 18 124/58 L 94 L 02/28/17 00:40 96 02/28/17 00:00 99.6 F 76 20 177/75 H 96 Weight Admit Weight 254 lb Weight 249 lb 3.2 oz I&O: 02/27/17 02/28/17 03/01/17 06:59 06:59 06:59 Intake Total 344 1903 Output Total 700 Balance 344 1203 Result Diagrams: 02/28/17 04:52 02/28/17 04:52 Additional Labs: Accuchecks 02/28/17 02/28/17 02/27/17 04:18 00:16 20:47 POC Glucose 225 H 264 H 380 H 02/27/17 02/27/17 02/27/17 18:09 11:57 09:03 POC Glucose 406 H 363 H 267 H Phys Exam - Physical Examination Constitutional: NAD HEENT: moist MMs Respiratory: no wheezing, no rales, no rhonchi Cardiovascular: RRR Gastrointestinal: soft, positive bowel sounds Neurological: non-focal Psychiatric: normal affect, A&O x 3 Deviation from normal: no more redness, left posterior ankle wound with dressing in place Dx/Plan (1) Cellulitis and abscess of left leg Code(s): L03.116 - CELLULITIS OF LEFT LOWER LIMB; L02.416 - CUTANEOUS ABSCESS OF LEFT LOWER LIMB Status: Acute (2) Diabetes mellitus type 2 in obese Code(s): E11.69 - TYPE 2 DIABETES MELLITUS WITH OTHER SPECIFIED COMPLICATION; E66.9 - OBESITY, UNSPECIFIED Status: Chronic Comment: uncontrolled (3) CKD (chronic kidney disease) stage 3, GFR 30-59 ml/min Code(s): N18.3 - CHRONIC KIDNEY DISEASE, STAGE 3 (MODERATE) Status: Acute Comment: Acute worsening improving (4) Secondary hyperparathyroidism (of renal origin) Code(s): N25.81 - SECONDARY HYPERPARATHYROIDISM OF RENAL ORIGIN Status: Chronic (5) Chronic diastolic (congestive) heart failure Code(s): I50.32 - CHRONIC DIASTOLIC (CONGESTIVE) HEART FAILURE Status: Chronic (6) Hypertension Code(s): I10 - ESSENTIAL (PRIMARY) HYPERTENSION Status: Chronic Qualifiers: Hypertension type: essential hypertension Qualified Code(s): I10 - Essential (primary) hypertension (7) Morbid obesity with BMI of 40.0-44.9, adult Code(s): E66.01 - MORBID (SEVERE) OBESITY DUE TO EXCESS CALORIES; Z68.41 - BODY MASS INDEX (BMI) 40.0-44.9, ADULT Status: Chronic - Plan cont current plan of care, continue antibiotics, DVT proph w/heparin, DVT proph w/SCDs No surgery necessary at this time. Appreciate Dr. Oleary's input. Continue -: wound care. Will continue IV abx as per Dr. Rosales's recommendations. * . - Discharge Day Encounter end time: 08:30
[2017-02-28 08:41] LABS: Vancomycin, Random 17.1 ug/mL (See Comment)
[2017-02-28] MEDS: Heparin 5,000 UNITS/ML VIAL SC SCH ×3 (09:21→20:18)
[2017-02-28] MEDS: Insulin Regular 300 UNITS/3 ML VIAL SC PRN ×3 (09:21→20:18)
[2017-02-28] MEDS: Insulin Detemir 100 UNITS/ML 10 UNITS in Pre-Filled Syringe 1 EACH SC SCH ×2 (09:24→20:18)
--- NOTE | 2017-02-28 19:48 | PRG ---
DATE OF SERVICE: 02/28/2017 SUBJECTIVE: Patient was seen and examined at bedside and overnight events noted. Patient denies any shortness of breath or chest pain or palpitation. No history of nausea or vomiting or diarrhea or f ever or chills or cramps. OBJECTIVE: GENERAL: This is a well-built female in no apparent distress. VITAL SIGNS: Temperature 97.5, pulse 60, respiratory rate 18 and blood pressure 125/58. HEENT: Atraumatic and normocephalic. Oral mucosa is moist. NECK: Supple. CARDIOVASCULAR: S1 and S2 heard. Rate and rhythm regular. RESPIRATORY: Clear to auscultation. GASTROINTESTINAL: Abdomen is soft. MUSCULOSKELETAL: No tenderness. No edema. DERMATOLOGIC: No skin rash. NEUROLOGIC: Alert, awake and oriented x3. No focal neurologic deficits. Moving all the extremities . PSYCHIATRIC: Mood and affect normal LABORATORY DATA: Potassium is 4.0, BUN is 33 and creatinine is 2.4. ASSESSMENT AND PLAN: 1. Acute kidney injury on chronic kidney disease stage 4. Renal function seems to be stable. 2. Hypertension. 3. Edema. 4. Anemia. Overall, renal function continues to get better. Continue on hydration as tolerated to avoid nephrot oxins. We will follow.
[2017-03-01] MEDS: Piperacillin/Tazobactam 4.5 GM in Sodium Chloride 0.9% 100 ML IVPB SCH ×2 (00:03→13:57)
[2017-03-01] MEDS: Sodium Chloride 0.9% 1,000 ML IV SCH ×2 (00:04→20:36)
--- NOTE | 2017-03-01 08:04 | PDOC.PN ---
- Subjective Encounter Start Date: 03/01/17 Encounter Start Time: 08:30 Subjective: Patient feeling better. No pain. No fever. - Objective MAR Reviewed: Yes Vital Signs & Weight: Vital Signs (12 hours) Temp Pulse Resp BP Pulse Ox 03/01/17 04:00 98.2 F 63 18 143/63 H 94 L Weight Admit Weight 254 lb Weight 247 lb 6.4 oz I&O: 02/28/17 03/01/17 03/02/17 06:59 06:59 06:59 Intake Total 1903 2400 Output Total 700 1660 Balance 1203 740 Result Diagrams: 02/28/17 04:52 02/28/17 04:52 Additional Labs: Accuchecks 03/01/17 02/28/17 02/28/17 04:49 23:38 20:11 POC Glucose 68 L 92 232 H 02/28/17 02/28/17 02/28/17 16:13 12:25 07:57 POC Glucose 251 H 161 H 191 H Phys Exam - Physical Examination Constitutional: NAD HEENT: moist MMs Respiratory: no wheezing, no rales, no rhonchi Cardiovascular: RRR 2/6 HI Gastrointestinal: soft, positive bowel sounds Musculoskeletal: pulses present Neurological: non-focal, moves all 4 limbs Psychiatric: normal affect, A&O x 3 Deviation from normal: ulcer on left post calf/ankle still with serosangenous drainage, no surroun -: ding redness Dx/Plan (1) Cellulitis and abscess of left leg Code(s): L03.116 - CELLULITIS OF LEFT LOWER LIMB; L02.416 - CUTANEOUS ABSCESS OF LEFT LOWER LIMB Status: Acute (2) Diabetes mellitus type 2 in obese Code(s): E11.69 - TYPE 2 DIABETES MELLITUS WITH OTHER SPECIFIED COMPLICATION; E66.9 - OBESITY, UNSPECIFIED Status: Chronic Plan: Blood sugar improved this AM Comment: uncontrolled (3) CKD (chronic kidney disease) stage 3, GFR 30-59 ml/min Code(s): N18.3 - CHRONIC KIDNEY DISEASE, STAGE 3 (MODERATE) Status: Acute Comment: Acute worsening improving (4) Secondary hyperparathyroidism (of renal origin) Code(s): N25.81 - SECONDARY HYPERPARATHYROIDISM OF RENAL ORIGIN Status: Chronic (5) Chronic diastolic (congestive) heart failure Code(s): I50.32 - CHRONIC DIASTOLIC (CONGESTIVE) HEART FAILURE Status: Chronic (6) Hypertension Code(s): I10 - ESSENTIAL (PRIMARY) HYPERTENSION Status: Chronic Qualifiers: Hypertension type: essential hypertension Qualified Code(s): I10 - Essential (primary) hypertension (7) Morbid obesity with BMI of 40.0-44.9, adult Code(s): E66.01 - MORBID (SEVERE) OBESITY DUE TO EXCESS CALORIES; Z68.41 - BODY MASS INDEX (BMI) 40.0-44.9, ADULT Status: Chronic - Plan cont current plan of care, continue antibiotics, PT/OT, DVT proph w/heparin, DVT proph w/SCDs wound culture done here no growth to date * .
[2017-03-01] MEDS: Vancomycin HCl 1.25 GM in Sodium Chloride 0.9% 250 ML 250 ML IVPB SCH (09:07)
[2017-03-01] MEDS: Heparin 5,000 UNITS/ML VIAL SC SCH ×3 (09:08→20:37)
[2017-03-01] MEDS: Insulin Detemir 100 UNITS/ML 10 UNITS in Pre-Filled Syringe 1 EACH SC SCH ×2 (09:08→20:37)
[2017-03-01] MEDS: Acetaminophen 325 MG TAB PO PRN ×3 (09:13→19:33)
[2017-03-01] MEDS: Insulin Regular 300 UNITS/3 ML VIAL SC PRN ×2 (13:57→17:00)
--- NOTE | 2017-03-01 21:28 | PRG ---
DATE OF SERVICE: 03/01/2017 SUBJECTIVE: Patient was seen and examined at bedside and overnight events noted. Patient denies any shortness of breath or chest pain or palpitation. No history of nausea or vomiting or diarrhea or f ever or chills or cramps. OBJECTIVE: GENERAL: This is a well-built female, in no apparent distress. VITAL SIGNS: Temperature 98.2, pulse 67, respiratory rate 18, blood pressure 143/64. HEENT: Atraumatic, normocephalic. Oral mucosa is moist. NECK: Supple. CARDIOVASCULAR: S1, S2 heard, rate and rhythm regular. RESPIRATORY: Clear to auscultation. GASTROINTESTINAL: Abdomen is soft. MUSCULOSKELETAL: No tenderness, no edema. DERMATOLOGIC: No skin rash. NEUROLOGIC: Alert and awake and oriented x3. No focal neurologic deficits. Moving all the extremit ies. PSYCHIATRIC: Mood and affect normal. LABORATORY DATA: Not done. ASSESSMENT AND PLAN: 1. Acute kidney injury on chronic kidney stage 4. Renal function will be monitored. 2. Hypertension. 3. Edema, controlled. 4. Anemia. Continue to monitor renal function. Avoid nephrotoxins. We will follow.
[2017-03-02] MEDS: Piperacillin/Tazobactam 4.5 GM in Sodium Chloride 0.9% 100 ML IVPB SCH ×2 (00:03→12:24)
[2017-03-02] MEDS: Sodium Chloride 0.9% 1,000 ML IV SCH (00:03)
[2017-03-02] MEDS: Acetaminophen 325 MG TAB PO PRN ×2 (03:49→09:53)
[2017-03-02 05:28] LABS: Anion Gap 9 mmol/L (10-20); BUN (Urea Nitrogen) 15 mg/dL (9.8-20.1); Calc. Creatinine Clearance 45 mL/min (70-130); Calcium 9.3 mg/dL (7.8-10.44); Carbon Dioxide 25 mmol/L (23-31); Chloride 110 mmol/L (98-107); Estimated GFR-MDRD 33
[2017-03-02] MEDS: Heparin 5,000 UNITS/ML VIAL SC SCH ×3 (09:53→21:00)
[2017-03-02] MEDS: Insulin Detemir 100 UNITS/ML 10 UNITS in Pre-Filled Syringe 1 EACH SC SCH ×2 (09:53→21:00)
--- NOTE | 2017-03-02 09:57 | PDOC.PN ---
- Subjective Encounter Start Date: 03/02/17 Encounter Start Time: 09:55 Patient seen and examined. No new complaints. No overnight events - Objective MAR Reviewed: Yes Vital Signs & Weight: Vital Signs (12 hours) Temp Pulse Resp BP BP Pulse Ox 03/02/17 07:35 98.1 F 80 18 144/69 H 94 L 03/02/17 03:49 99.3 F 64 20 162/68 H 100 03/01/17 23:41 99.4 F 65 20 132/61 95 Weight Admit Weight 254 lb Weight 247 lb I&O: 03/01/17 03/02/17 03/03/17 06:59 06:59 06:59 Intake Total 2400 2281 Output Total 1660 600 Balance 740 1681 Result Diagrams: 02/28/17 04:52 03/02/17 10:03 Additional Labs: Accuchecks 03/02/17 03/02/17 03/01/17 08:41 04:09 23:04 POC Glucose 134 H 76 121 H 03/01/17 03/01/17 16:18 12:09 POC Glucose 194 H 191 H Phys Exam - Physical Examination Constitutional: NAD HEENT: PERRLA Neck: no JVD Respiratory: no wheezing Cardiovascular: no significant murmur Gastrointestinal: soft lt leg swollen and in dressing Neurological: moves all 4 limbs Dx/Plan (1) Peripheral vascular disease Code(s): I73.9 - PERIPHERAL VASCULAR DISEASE, UNSPECIFIED Status: Acute (2) Diabetes mellitus type 2 in obese Code(s): E11.69 - TYPE 2 DIABETES MELLITUS WITH OTHER SPECIFIED COMPLICATION; E66.9 - OBESITY, UNSPECIFIED Status: Chronic Comment: uncontrolled (3) Acute worsening of stage 3 chronic kidney disease Code(s): N18.3 - CHRONIC KIDNEY DISEASE, STAGE 3 (MODERATE) Status: Acute Comment: will recheck (4) Cellulitis and abscess of left leg Code(s): L03.116 - CELLULITIS OF LEFT LOWER LIMB; L02.416 - CUTANEOUS ABSCESS OF LEFT LOWER LIMB Status: Acute (5) Hypokalemia Code(s): E87.6 - HYPOKALEMIA Status: Acute (6) Hypertension Code(s): I10 - ESSENTIAL (PRIMARY) HYPERTENSION Status: Chronic Qualifiers: Hypertension type: essential hypertension Qualified Code(s): I10 - Essential (primary) hypertension (7) Morbid obesity with BMI of 40.0-44.9, adult Code(s): E66.01 - MORBID (SEVERE) OBESITY DUE TO EXCESS CALORIES; Z68.41 - BODY MASS INDEX (BMI) 40.0-44.9, ADULT Status: Chronic - Plan * consult cvts and follow rec's * nephrology input appreciated * cont abx and wound care *
[2017-03-02 10:42] LABS: Anion Gap 14 mmol/L (10-20); BUN (Urea Nitrogen) 14 mg/dL (9.8-20.1); Calc. Creatinine Clearance 45 mL/min (70-130); Calcium 9.7 mg/dL (7.8-10.44); Carbon Dioxide 23 mmol/L (23-31); Chloride 109 mmol/L (98-107); Estimated GFR-MDRD 34
[2017-03-02] MEDS ORDERED: hydrALAZINE 20 MG/ML VIAL SLOW IVP PRN (12:09)
[2017-03-02] MEDS: HYDROcodone/Acetaminophen 10/325 mg Tablet PO PRN (13:49)
--- NOTE | 2017-03-02 18:59 | CON ---
DATE OF CONSULTATION: 03/02/2017 REASON FOR CONSULTATION: Lower extremity vascular evaluation. PERTINENT HISTORY: The patient is an 81-year-old female readmitted on 2016ith what appears to represent a slowly healing venous stasis ulcer involving the left ankle. Previous left lower extremity venous duplex demonstrated no evidence of DVT. Current left lower extremity arterial duplex was suggestive of arterial insufficiency based on monophasic waveforms throughout the entire extremity with moderately elevated velocities involving the left common femoral and profunda femoris arteries. On examination, she does have evidence of bilateral lower extremity chronic venous insufficiency which does appear worse on the left. Left femoral, popliteal, dorsalis pedis and posterior tibial pulses are dopplerable only, with these findings mirrored on the right side. Patient states she does ambulate to some minor degree with a walker within her home and with family assistance. She does not appear to have claudication or ischemic rest pain. PAST MEDICAL HISTORY: 1. Morbid obesity. 2. Poorly controlled diabetes. 3. Hypertension. 4. Chronic renal insufficiency. 5. Diastolic heart failure. 6. Recurrent urinary tract infection. 7. Dyslipidemia. PAST SURGICAL HISTORY: 1. Appendectomy. 2. Hysterectomy. ALLERGIES: None. SOCIAL HISTORY: Former smoker. Nondrinker. FAMILY HISTORY: Noncontributory. REVIEW OF SYSTEMS: No history of documented stroke. LABORATORY DATA AND X-RAY: Creatinine today 1.76 down from admission of 3.03. White blood cell count 2 days ago 8.3 with hemoglobin of 9.4 and platelet count of 334,000. CURRENT MEDICATIONS: Aspirin, Coreg, subcu heparin, insulin detemir, insulin regular, Crestor, and both IV Zosyn and vancomycin. PHYSICAL EXAMINATION: VITAL SIGNS: Weight 247 pounds, blood pressure 150/64, heart rate 76, temperature 98.1. GENERAL: Morbidly obese female who is unaccompanied at present. She is oriented to person and place. HEENT: Grossly unremarkable. NECK: Without obvious JVD or adenopathy. LUNGS: Clear anteriorly. HEART: Regular rate and rhythm with systolic ejection murmur best heard at right upper sternal border with transmission to each carotid area. ABDOMEN: Soft and nontender. EXTREMITIES: As described above. VASCULAR: As described above. Radial pulses are palpable. No distinct carotid bruits were appreciated. NEUROLOGIC: No focal deficits. IMPRESSION: 1. Bilateral lower extremity chronic venous insufficiency, left greater than right with slowly healing left ankle venous stasis ulcer. 2. Bilateral lower extremity peripheral arterial disease based on the above noted exam findings. RECOMMENDATIONS: Continue efforts at venous stasis ulcer healing with intravenous antibiotics and local wound care. Consideration can be given to a conventional lower extremity angiography with potential percutaneous left lower extremity intervention should the above efforts be refractory. This, however, would have to be carefully considered in light of her renal insufficiency. I will meet with the patient's family over the next day or two as I follow the patient while she is here. NAELD
[2017-03-02] MEDS ORDERED: Carvedilol 3.125 MG TAB PO SCH ×2 (21:00)
[2017-03-02] MEDS ORDERED: Non-Formulary Item 1 EACH (Sitagliptin Phos/Metformin Hcl [Janumet] 1 TAB) PO SCH (21:00)
[2017-03-02] MEDS: Carvedilol 6.25 MG TAB PO SCH (21:00)
--- NOTE | 2017-03-02 23:54 | PRG ---
DATE OF SERVICE: 03/02/2012 SUBJECTIVE: Patient was seen and examined at bedside and overnight events noted. Patient denies any shortness of breath or chest pain or palpitation. No history of nausea or vomiting or diarrhea or f ever or chills or cramps. OBJECTIVE: GENERAL: This is an elderly female in no apparent distress. VITAL SIGNS: Temperature 98.5, pulse 67, respirations 20, blood pressure 113/63. HEENT: Atraumatic, normocephalic. Oral mucosa is moist. NECK: Supple. CARDIOVASCULAR: S1, S2 heard. Rate and rhythm regular. RESPIRATORY: Clear to auscultation. GASTROINTESTINAL: Abdomen is soft. MUSCULOSKELETAL: No tenderness. No edema. DERMATOLOGIC: No skin rash. NEUROLOGIC: Alert and awake and oriented x3. No focal neurologic deficits. Moving all the extremit ies. PSYCHIATRIC: Mood and affect normal. LABORATORY DATA: Potassium is , BUN is 14, creatinine is 1.7. ASSESSMENT AND PLAN: 1. Acute kidney injury on chronic kidney disease stage 3. Renal function is much better, close to b aseline. 2. Hypertension, stable. 3. Edema, controlled. 4. Anemia, chronic. 5. Hypokalemia, replaced. 6. Renal function is much better. We will continue to follow.
[2017-03-03] MEDS: Piperacillin/Tazobactam 4.5 GM in Sodium Chloride 0.9% 100 ML IVPB SCH ×2 (00:32→12:20)
[2017-03-03 06:25] LABS: #Basophils 0.1 thou/uL (0.0-0.2); #Eosinphils 0.5 thou/uL (0.0-0.7); #Lymphocytes 1.5 thou/uL (1.20-3.40); #Monocytes 0.6 thou/uL (0.11-0.59); #Neutrophils 5.4 thou/uL (1.40-6.50); %Eosinophils 6.3 % (0.0-10.0); %Lymphocytes 18.9 % (21.0-51.0); %Monocytes 7.1 % (0.0-10.0); Hematocrit 29.2 % (36.0-47.0); Mean Platelet Volume 6.7 fL (7.4-10.4); Red Blood Cell (RBC) Count 3.29 mill/uL (4.20-5.40); White Blood Cell (WBC) Count 8.1 thou/uL (4.8-10.8)
[2017-03-03 08:55] LABS: Vancomycin, Trough 11.6 ug/mL
[2017-03-03] MEDS: Carvedilol 6.25 MG TAB PO SCH ×2 (09:29→20:40)
[2017-03-03] MEDS: Heparin 5,000 UNITS/ML VIAL SC SCH ×3 (09:29→20:40)
[2017-03-03] MEDS: Insulin Detemir 100 UNITS/ML 10 UNITS in Pre-Filled Syringe 1 EACH SC SCH ×2 (09:30→20:38)
[2017-03-03] MEDS: Vancomycin HCl 1 GM in Premix Bag 1 BAG IVPB SCH (09:43)
[2017-03-03] MEDS: Vancomycin HCl 1.25 GM in Sodium Chloride 0.9% 250 ML 250 ML IVPB SCH (09:55)
[2017-03-03] MEDS: HYDROcodone/Acetaminophen 10/325 mg Tablet PO PRN ×2 (09:57→15:49)
--- NOTE | 2017-03-03 13:21 | PRG ---
DATE OF SERVICE: 03/03/2017 SUBJECTIVE: Patient was seen and examined at bedside and overnight events noted. Patient denies any shortness of breath or chest pain or palpitation. No history of nausea or vomiting or diarrhea or fe tricia or chills or cramps. OBJECTIVE: GENERAL: This is a well-built elderly female, in no apparent distress. VITAL SIGNS: Temperature 96, pulse 62, respiratory rate 18, blood pressure 147/66. HEENT: Atraumatic, normocephalic. Oral mucosa is moist. NECK: Supple. CARDIOVASCULAR: S1, S2 heard. Rate and rhythm regular. RESPIRATORY: Clear to auscultation. GASTROINTESTINAL: Abdomen is soft. MUSCULOSKELETAL: No tenderness, no edema. DERMATOLOGIC: No skin rash. NEUROLOGIC: Alert and awake and oriented x3. No focal neurologic deficits. Moving all the extremit ies. PSYCHIATRIC: Mood and affect normal. LABORATORY DATA: Not done today. ASSESSMENT AND PLAN: 1. Acute kidney injury on chronic kidney disease, stable. 2. Edema. 3. Hypokalemia. 4. Obesity. Okay to hold Lasix for now and restart on tomorrow if needed. We will follow.
--- NOTE | 2017-03-03 14:40 | PDOC.PN ---
- Subjective Encounter Start Date: 03/03/17 Encounter Start Time: 14:37 Patient seen and examined. No new complaints. No overnight events - Objective MAR Reviewed: Yes Vital Signs & Weight: Vital Signs (12 hours) Temp Pulse Resp BP BP BP BP 03/03/17 11:45 98.6 F 62 18 147/66 H 03/03/17 09:31 144/72 H 03/03/17 09:29 144/65 H 03/03/17 09:27 98.6 F 62 18 144/72 H 03/03/17 04:51 03/03/17 04:00 98.0 F 65 18 153/67 H Pulse Ox 03/03/17 11:45 99 03/03/17 09:31 03/03/17 09:29 03/03/17 09:27 98 03/03/17 04:51 97 03/03/17 04:00 97 Weight Admit Weight 254 lb Weight 247 lb I&O: 03/02/17 03/03/17 03/04/17 06:59 06:59 06:59 Intake Total 2281 1363 Output Total 600 Balance 1681 1363 Result Diagrams: 03/03/17 05:21 03/02/17 10:03 Additional Labs: Accuchecks 03/03/17 03/03/17 03/03/17 11:00 07:59 04:19 POC Glucose 171 H 127 H 143 H 03/02/17 03/02/17 03/02/17 23:57 20:29 16:45 POC Glucose 178 H 149 H 132 H 03/02/17 11:47 POC Glucose 119 H Phys Exam - Physical Examination Constitutional: NAD HEENT: PERRLA Neck: no JVD Respiratory: no wheezing Cardiovascular: no significant murmur Gastrointestinal: soft left leg edema more than rt. leg ulcers noted Neurological: moves all 4 limbs Psychiatric: A&O x 3 Dx/Plan (1) Peripheral vascular disease Code(s): I73.9 - PERIPHERAL VASCULAR DISEASE, UNSPECIFIED Status: Acute (2) Diabetes mellitus type 2 in obese Code(s): E11.69 - TYPE 2 DIABETES MELLITUS WITH OTHER SPECIFIED COMPLICATION; E66.9 - OBESITY, UNSPECIFIED Status: Chronic Comment: uncontrolled (3) Acute worsening of stage 3 chronic kidney disease Code(s): N18.3 - CHRONIC KIDNEY DISEASE, STAGE 3 (MODERATE) Status: Acute Comment: will recheck (4) Cellulitis and abscess of left leg Code(s): L03.116 - CELLULITIS OF LEFT LOWER LIMB; L02.416 - CUTANEOUS ABSCESS OF LEFT LOWER LIMB Status: Acute (5) Hypokalemia Code(s): E87.6 - HYPOKALEMIA Status: Acute (6) Hypertension Code(s): I10 - ESSENTIAL (PRIMARY) HYPERTENSION Status: Chronic Qualifiers: Hypertension type: essential hypertension Qualified Code(s): I10 - Essential (primary) hypertension (7) Morbid obesity with BMI of 40.0-44.9, adult Code(s): E66.01 - MORBID (SEVERE) OBESITY DUE TO EXCESS CALORIES; Z68.41 - BODY MASS INDEX (BMI) 40.0-44.9, ADULT Status: Chronic (8) Diastolic CHF Code(s): I50.30 - UNSPECIFIED DIASTOLIC (CONGESTIVE) HEART FAILURE Status: Acute Comment: ef- 60% - Plan * agree with cvts in medical mx for now. if refractory then will do angiogram studies * renal funtion improving. start lasix in am. hold cesar and hctz. metaloxone prn * f/u dr isbell plan for abx * pt eval and treat
[2017-03-03] MEDS: Insulin Regular 300 UNITS/3 ML VIAL SC PRN (16:57)
[2017-03-04] MEDS: Piperacillin/Tazobactam 4.5 GM in Sodium Chloride 0.9% 100 ML IVPB SCH (01:13)
[2017-03-04 06:11] LABS: Anion Gap 10 mmol/L (10-20); BUN (Urea Nitrogen) 17 mg/dL (9.8-20.1); BUN/Creatinine Ratio 11.18; Calc. Creatinine Clearance 52 mL/min (70-130); Calcium 9.4 mg/dL (7.8-10.44); Carbon Dioxide 25 mmol/L (23-31); Chloride 106 mmol/L (98-107); Estimated GFR-MDRD 40; Phosphorus 2.2 mg/dL (2.3-4.7)
[2017-03-04] MEDS: Carvedilol 6.25 MG TAB PO SCH ×2 (08:28→20:24)
[2017-03-04] MEDS: Insulin Detemir 100 UNITS/ML 10 UNITS in Pre-Filled Syringe 1 EACH SC SCH ×2 (08:29→21:11)
[2017-03-04] MEDS: Heparin 5,000 UNITS/ML VIAL SC SCH ×3 (08:29→20:25)
[2017-03-04] MEDS ORDERED: Furosemide 40 MG TAB PO SCH (09:00)
[2017-03-04] MEDS: Vancomycin HCl 1 GM in Premix Bag 1 BAG IVPB SCH (09:15)
[2017-03-04] MEDS ORDERED: Potassium Phosphate 15 MMOL in Sodium Chloride 0.9% 250 ML 250 ML IVPB SCH (10:30)
[2017-03-04] MEDS: hydrALAZINE 25 MG TAB PO SCH ×3 (10:33→20:26)
[2017-03-04] MEDS: Furosemide 40 MG TAB PO SCH (10:35)
[2017-03-04] MEDS: HYDROcodone/Acetaminophen 10/325 mg Tablet PO PRN ×2 (10:35→16:45)
[2017-03-04] MEDS: Insulin Regular 300 UNITS/3 ML VIAL SC PRN ×2 (12:29→16:35)
--- NOTE | 2017-03-04 13:14 | PRG ---
DATE OF SERVICE: 03/04/2017 SUBJECTIVE: Patient was seen and examined at bedside and overnight events noted. Patient denies any shortness of breath or chest pain or palpitation. No history of nausea or vomiting or diarrhea or f ever or chills or cramps. OBJECTIVE: GENERAL: This is a well-built female in no apparent distress. VITAL SIGNS: Temperature 98, pulse 64, respiratory rate 18, blood pressure 170/73. HEENT: Atraumatic, normocephalic. Oral mucosa is moist. NECK: Supple. CARDIOVASCULAR: S1, S2 heard. Rate and rhythm regular. RESPIRATORY: Clear to auscultation. GASTROINTESTINAL: Abdomen is soft. MUSCULOSKELETAL: No tenderness. No edema. DERMATOLOGIC: No skin rash. NEUROLOGIC: Alert and awake and oriented x3. No focal neurologic deficits. Moving all the extremiti es. PSYCHIATRIC: Mood and affect normal. LABORATORY DATA: Potassium is 3.3, BUN is 70, and creatinine is 1.5. ASSESSMENT AND PLAN: 1. Acute kidney injury on chronic kidney disease, stage 3. Renal function is better. 2. Edema, controlled. 3. Hypokalemia, replace and monitor. 4. Obesity. 5. Peripheral vascular disease. 6. Moderate hypoalbuminemia with moderate protein energy malnutrition. Plan is to continue renal function. Okay with Lasix for now with close monitoring of renal function. We will follow.
--- NOTE | 2017-03-04 14:50 | PDOC.PN ---
- Subjective Encounter Start Date: 03/04/17 Encounter Start Time: 14:49 Patient seen and examined. No new complaints. No overnight events - Objective MAR Reviewed: Yes Vital Signs & Weight: Vital Signs (12 hours) Temp Pulse Resp BP BP BP Pulse Ox 03/04/17 14:14 65 129/58 L 03/04/17 10:33 65 175/73 H 03/04/17 08:00 98.8 F 64 18 175/73 H 98 03/04/17 04:00 98.9 F 57 L 18 172/73 H 99 Weight Admit Weight 254 lb Weight 247 lb I&O: 03/03/17 03/04/17 03/05/17 06:59 06:59 06:59 Intake Total 1363 2160 120 Balance 1363 2160 120 Result Diagrams: 03/03/17 05:21 03/04/17 05:35 Additional Labs: Accuchecks 03/04/17 03/04/17 03/04/17 12:19 08:51 04:02 POC Glucose 183 H 136 H 129 H 03/04/17 03/03/17 03/03/17 00:27 20:01 16:15 POC Glucose 171 H 149 H 203 H Phys Exam - Physical Examination Constitutional: NAD HEENT: PERRLA Neck: no JVD Respiratory: no wheezing Cardiovascular: no significant murmur Gastrointestinal: non-tender Musculoskeletal: edema present ulcers covered by dressing Neurological: moves all 4 limbs Psychiatric: A&O x 3 Dx/Plan (1) Peripheral vascular disease Code(s): I73.9 - PERIPHERAL VASCULAR DISEASE, UNSPECIFIED Status: Acute (2) Diabetes mellitus type 2 in obese Code(s): E11.69 - TYPE 2 DIABETES MELLITUS WITH OTHER SPECIFIED COMPLICATION; E66.9 - OBESITY, UNSPECIFIED Status: Chronic Comment: uncontrolled (3) Acute worsening of stage 3 chronic kidney disease Code(s): N18.3 - CHRONIC KIDNEY DISEASE, STAGE 3 (MODERATE) Status: Acute Comment: will recheck (4) Cellulitis and abscess of left leg Code(s): L03.116 - CELLULITIS OF LEFT LOWER LIMB; L02.416 - CUTANEOUS ABSCESS OF LEFT LOWER LIMB Status: Acute (5) Hypokalemia Code(s): E87.6 - HYPOKALEMIA Status: Acute (6) Hypertension Code(s): I10 - ESSENTIAL (PRIMARY) HYPERTENSION Status: Chronic Qualifiers: Hypertension type: essential hypertension Qualified Code(s): I10 - Essential (primary) hypertension (7) Morbid obesity with BMI of 40.0-44.9, adult Code(s): E66.01 - MORBID (SEVERE) OBESITY DUE TO EXCESS CALORIES; Z68.41 - BODY MASS INDEX (BMI) 40.0-44.9, ADULT Status: Chronic (8) Diastolic CHF Code(s): I50.30 - UNSPECIFIED DIASTOLIC (CONGESTIVE) HEART FAILURE Status: Acute Comment: ef- 60% - Plan * start lasix * f/u dr isbell plan for abx * case mx to help with placement and outpt abx
[2017-03-04] MEDS ORDERED: Piperacillin/Tazobactam 4.5 GM in Sodium Chloride 0.9% 100 ML IVPB SCH (15:00)
--- NOTE | 2017-03-04 15:36 | PRG ---
DATE OF SERVICE: 03/04/2017 SUBJECTIVE: Sitting up by the bedside. She has been transferred to the Oncology Area. Appears in n o distress. No respiratory symptoms or chest pain. No abdominal pain. Having some loose stools. L ess pain in the left lower extremity. OBJECTIVE: VITAL SIGNS: Showed essentially normal temperature, BP 129/58. GENERAL: Awake, alert, in no distress. LUNGS: Symmetric air entry. No crackles or wheezing. HEART: S1, S2, regular rate with a harsh aortic murmur, systolic. ABDOMEN: Soft, mild distention, no tenderness. EXTREMITIES: Lymphedema with swelling in the lower extremities. The ulcer in the posterior aspect o f the left leg has improved in appearance. There is less erythema. LABORATORY DATA: White cell count 8.1, hemoglobin 9.1, platelets 266. Chemistry with a creatinine d own to 1.52. Microbiology with Staphylococcus aureus, which is methicillin sensitive. ASSESSMENT AND PLAN: Type 2 diabetes, ischemic cardiomyopathy, diastolic dysfunction, venous insuffi ciency and arterial insufficiency of lower extremities, cellulitis left leg with wound in the posteri or aspect of the leg. At this point, we will switch her to oral Keflex for discharge planning. Cont inue with compressive dressing, elevation of the extremities. Treat for about 2 weeks. Consider sup pressive Pen-Vee K following the 250 mg twice daily for a few months. Again, compression device will be difficult to consider because of concomitant arterial insufficiency. Elevation of extremities ma y be the way to go.
[2017-03-04] MEDS: Cephalexin 250 MG CAP PO SCH (20:23)
[2017-03-05 06:10] LABS: Anion Gap 12 mmol/L (10-20); BUN (Urea Nitrogen) 21 mg/dL (9.8-20.1); BUN/Creatinine Ratio 12.96; CK (CPK) 270 U/L (29-168); Calc. Creatinine Clearance 50 mL/min (70-130); Calcium 9.8 mg/dL (7.8-10.44); Carbon Dioxide 24 mmol/L (23-31); Chloride 104 mmol/L (98-107); Estimated GFR-MDRD 37; Phosphorus 2.7 mg/dL (2.3-4.7)
[2017-03-05] MEDS: HYDROcodone/Acetaminophen 10/325 mg Tablet PO PRN (08:53)
[2017-03-05] MEDS: Furosemide 40 MG TAB PO SCH (08:58)
[2017-03-05] MEDS: hydrALAZINE 25 MG TAB PO SCH ×3 (08:58→20:37)
[2017-03-05] MEDS: Cephalexin 250 MG CAP PO SCH ×3 (08:58→20:32)
[2017-03-05] MEDS: Carvedilol 6.25 MG TAB PO SCH ×2 (08:58→20:32)
[2017-03-05] MEDS ORDERED: Furosemide 40 MG TAB PO SCH (09:00)
[2017-03-05] MEDS: Heparin 5,000 UNITS/ML VIAL SC SCH ×3 (09:05→20:33)
[2017-03-05] MEDS: Insulin Detemir 100 UNITS/ML 10 UNITS in Pre-Filled Syringe 1 EACH SC SCH ×2 (09:05→21:37)
--- NOTE | 2017-03-05 11:26 | PRG ---
DATE OF SERVICE: 03/05/2017 SUBJECTIVE: This is an 81-year-old female being seen for acute kidney injury. The patient denies an y nausea, vomiting, or chest pain. PHYSICAL EXAMINATION: GENERAL: Patient is awake, alert. VITAL SIGNS: Afebrile, pulse 67, breathing at 16, blood pressure 149/64. HEAD/NECK: Normocephalic. Atraumatic. EYES: EOMI. No deformity. EARS: Clear. No ulcers. NOSE: Intact. No lesions. MOUTH: Clear. No discharge. THROAT: Clear. No exudate. LUNGS: Clear. No crackles. CARDIAC: S1, S2. No rub. ABDOMEN: Benign. BS+. GENITALIA/RECTUM: Mcgovern absent. BACK/EXTREMITIES: Edema 0+ Ulcer- NEUROLOGICAL: Alert and motor intact. SKIN: Rash- Bruise- LYMPHATICS: Edema- Ulcer- LABORATORY DATA: Show creatinine 1.6, potassium 3.4. ASSESSMENT AND RECOMMENDATIONS: 1. Chronic kidney disease stage 3, stable. 2. Acute kidney injury, improving. 3. Hypertension, stable. 4. Anemia, stable. 5. Medications based on glomerular filtration rate are appropriate. No indication for dialysis. 6. Hypokalemia, would recommend 20 mEq of potassium by mouth.
--- NOTE | 2017-03-05 16:52 | PDOC.PN ---
- Subjective Encounter Start Date: 03/05/17 Encounter Start Time: 16:51 Patient seen and examined. No new complaints. No overnight events - Objective MAR Reviewed: Yes Vital Signs & Weight: Vital Signs (12 hours) Temp Pulse Pulse Pulse Resp BP BP 03/05/17 14:55 60 65 145/58 H 124/71 03/05/17 11:37 98.9 F 65 14 03/05/17 08:58 67 03/05/17 08:00 98.9 F 65 14 03/05/17 07:48 99.0 F 67 12 BP Pulse Ox Pulse Ox Pulse Ox 03/05/17 14:55 96 99 03/05/17 11:37 125/58 L 100 03/05/17 08:58 03/05/17 08:00 94 L 03/05/17 07:48 162/76 H 94 L Weight Admit Weight 254 lb Weight 251 lb 1 oz I&O: 03/04/17 03/05/17 03/06/17 06:59 06:59 06:59 Intake Total 2160 1170 250 Balance 2160 1170 250 Result Diagrams: 03/03/17 05:21 03/05/17 05:37 Additional Labs: Accuchecks 03/05/17 03/05/17 03/05/17 15:33 10:20 07:59 POC Glucose 183 H 158 H 131 H 03/05/17 03/05/17 03/04/17 04:12 00:00 20:20 POC Glucose 154 H 162 H 128 H Phys Exam - Physical Examination Constitutional: NAD HEENT: PERRLA Neck: no JVD Respiratory: no wheezing Cardiovascular: no significant murmur Gastrointestinal: non-tender Musculoskeletal: edema present venous stasis ulcers present Neurological: moves all 4 limbs Psychiatric: A&O x 3 Dx/Plan (1) Peripheral vascular disease Code(s): I73.9 - PERIPHERAL VASCULAR DISEASE, UNSPECIFIED Status: Acute (2) Diabetes mellitus type 2 in obese Code(s): E11.69 - TYPE 2 DIABETES MELLITUS WITH OTHER SPECIFIED COMPLICATION; E66.9 - OBESITY, UNSPECIFIED Status: Chronic Comment: uncontrolled (3) Acute worsening of stage 3 chronic kidney disease Code(s): N18.3 - CHRONIC KIDNEY DISEASE, STAGE 3 (MODERATE) Status: Acute Comment: will recheck (4) Cellulitis and abscess of left leg Code(s): L03.116 - CELLULITIS OF LEFT LOWER LIMB; L02.416 - CUTANEOUS ABSCESS OF LEFT LOWER LIMB Status: Acute (5) Hypokalemia Code(s): E87.6 - HYPOKALEMIA Status: Acute (6) Hypertension Code(s): I10 - ESSENTIAL (PRIMARY) HYPERTENSION Status: Chronic Qualifiers: Hypertension type: essential hypertension Qualified Code(s): I10 - Essential (primary) hypertension (7) Morbid obesity with BMI of 40.0-44.9, adult Code(s): E66.01 - MORBID (SEVERE) OBESITY DUE TO EXCESS CALORIES; Z68.41 - BODY MASS INDEX (BMI) 40.0-44.9, ADULT Status: Chronic (8) Diastolic CHF Code(s): I50.30 - UNSPECIFIED DIASTOLIC (CONGESTIVE) HEART FAILURE Status: Acute Comment: ef- 60% - Plan * doing well * case mx to help with snf placement
[2017-03-05] MEDS: Insulin Regular 300 UNITS/3 ML VIAL SC PRN (17:57)
[2017-03-06] MEDS: Furosemide 40 MG TAB PO SCH (09:29)
[2017-03-06] MEDS: Cephalexin 250 MG CAP PO SCH ×3 (09:29→20:41)
[2017-03-06] MEDS: hydrALAZINE 25 MG TAB PO SCH ×3 (09:29→20:42)
[2017-03-06] MEDS: Carvedilol 6.25 MG TAB PO SCH ×2 (09:30→20:41)
[2017-03-06] MEDS: Heparin 5,000 UNITS/ML VIAL SC SCH ×3 (09:35→20:41)
--- NOTE | 2017-03-06 10:17 | PDOC.PN ---
- Subjective Encounter Start Date: 03/06/17 Encounter Start Time: 10:15 Patient seen and examined. No new complaints. No overnight events - Objective MAR Reviewed: Yes Vital Signs & Weight: Vital Signs (12 hours) Temp Pulse Resp BP BP Pulse Ox 03/06/17 09:30 152/62 H 03/06/17 09:29 70 03/06/17 08:00 98.9 F 70 16 98 03/06/17 07:20 98.9 F 70 16 152/62 H 98 Weight Admit Weight 254 lb Weight 251 lb 1 oz I&O: 03/05/17 03/06/17 03/07/17 06:59 06:59 06:59 Intake Total 1170 1250 Balance 1170 1250 Result Diagrams: 03/03/17 05:21 03/05/17 05:37 Additional Labs: Accuchecks 03/06/17 03/06/17 03/05/17 08:58 04:36 23:43 POC Glucose 127 H 132 H 146 H 03/05/17 03/05/17 03/05/17 19:33 15:33 10:20 POC Glucose 178 H 183 H 158 H Phys Exam - Physical Examination Constitutional: NAD HEENT: PERRLA Neck: no JVD Respiratory: no wheezing Cardiovascular: no significant murmur Gastrointestinal: non-tender Musculoskeletal: edema present dressing in place Neurological: moves all 4 limbs Psychiatric: A&O x 3 Dx/Plan (1) Peripheral vascular disease Code(s): I73.9 - PERIPHERAL VASCULAR DISEASE, UNSPECIFIED Status: Acute (2) Diabetes mellitus type 2 in obese Code(s): E11.69 - TYPE 2 DIABETES MELLITUS WITH OTHER SPECIFIED COMPLICATION; E66.9 - OBESITY, UNSPECIFIED Status: Chronic Comment: uncontrolled (3) Acute worsening of stage 3 chronic kidney disease Code(s): N18.3 - CHRONIC KIDNEY DISEASE, STAGE 3 (MODERATE) Status: Acute Comment: will recheck (4) Cellulitis and abscess of left leg Code(s): L03.116 - CELLULITIS OF LEFT LOWER LIMB; L02.416 - CUTANEOUS ABSCESS OF LEFT LOWER LIMB Status: Acute (5) Hypokalemia Code(s): E87.6 - HYPOKALEMIA Status: Acute (6) Hypertension Code(s): I10 - ESSENTIAL (PRIMARY) HYPERTENSION Status: Chronic Qualifiers: Hypertension type: essential hypertension Qualified Code(s): I10 - Essential (primary) hypertension (7) Morbid obesity with BMI of 40.0-44.9, adult Code(s): E66.01 - MORBID (SEVERE) OBESITY DUE TO EXCESS CALORIES; Z68.41 - BODY MASS INDEX (BMI) 40.0-44.9, ADULT Status: Chronic (8) Diastolic CHF Code(s): I50.30 - UNSPECIFIED DIASTOLIC (CONGESTIVE) HEART FAILURE Status: Acute Comment: ef- 60% - Plan * doing good * cont current mx * case mx to help with snf
[2017-03-06] MEDS: HYDROcodone/Acetaminophen 10/325 mg Tablet PO PRN (10:29)
[2017-03-06] MEDS: Insulin Detemir 100 UNITS/ML 10 UNITS in Pre-Filled Syringe 1 EACH SC SCH ×2 (10:29→20:43)
[2017-03-06 11:23] VITALS: BMI 41.8
--- NOTE | 2017-03-06 11:33 | PRG ---
DATE OF SERVICE: 03/06/2017 SUBJECTIVE: This is an 81-year-old female being seen for acute kidney injury. The patient denies an y nausea, vomiting, or chest pain. PHYSICAL EXAMINATION: GENERAL: Patient is awake, alert. VITAL SIGNS: Afebrile, pulse 70, breathing at 16, blood pressure 152/60. OBJECTIVE: See above. Awake, alert, in no acute distress. GENERAL APPEARANCE AND MENTAL STATUS: Fair. HEAD/NECK: Normocephalic. Atraumatic. EYES: EOMI. No deformity. EARS: Clear. No ulcers. NOSE: Intact. No lesions. MOUTH: Clear. No discharge. THROAT: Clear. No exudate. LUNGS: Clear. No crackles. CARDIAC: S1, S2. No rub. ABDOMEN: Benign. BS+. GENITALIA/RECTUM: Mcgovern absent. BACK/EXTREMITIES: Edema 0+ Ulcer- NEUROLOGICAL: Alert and motor intact. SKIN: Rash- Bruise- LYMPHATICS: Edema- Ulcer- LABORATORY: Hemoglobin 9.1, creatinine was 1.6. ASSESSMENT AND RECOMMENDATIONS: 1. Acute kidney injury with chronic kidney disease stage 3, stable. 2. Hypertension, stable. 3. Anemia, stable. 4. Medications based on GFR are appropriate.
[2017-03-06] MEDS: Insulin Regular 300 UNITS/3 ML VIAL SC PRN (17:16)
--- NOTE | 2017-03-06 18:42 | DIS ---
DATE OF ADMISSION: 02/26/2017 DATE OF DISCHARGE: 03/06/2017 DISCHARGE DIAGNOSES: Left leg cellulitis and venous stasis ulcers, diabetes mellitus, acute kidney i njury, hypertension, diastolic congestive heart failure. DISCHARGE MEDICATIONS: Include aspirin 81 mg p.o. daily, Coreg 12.5 mg p.o. b.i.d., Keflex 500 mg p. o. t.i.d. for 3 weeks, Feosol 325 p.o. daily, Lasix 40 mg p.o. daily, detemir 10 units subcu b.i.d., regular insulin by sliding scale to use as directed, Lyrica 75 p.o. b.i.d., and Crestor 20 mg p.o. da tiago. 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 CONSULTANTS ON THE CASE: Nephrology, Dr. Rosales; Dr. Calloway; and Dr. Philip Oleary. BRIEF HOSPITAL COURSE: An 81-year-old female patient came into the hospital for ankle wound. Please refer to the admitting physician's H&P for further details. Patient was also found to be in acute o n chronic kidney disease. All nephrotoxins were stopped. Valsartan was stopped. Metformin was stop ped and metolazone was stopped. Lasix was stopped. She was gently hydrated. Kidneys function impro monik. Dr. Rigoberto Phan was happy with the progress and he decided to put the patient on 40 mg of p .o. Lasix at the time of discharge. For the leg cellulitis, Dr. Rosales was consulted. He ordered wou nd care and optimized the antibiotic treatment. Microbiology of the wound showed Staphylococcus mana us sensitive to Keflex, so he put on p.o. Keflex for 21 days and he is going to re-evaluate her as an outpatient. Dr. Calloway was consulted for the peripheral vascular disease. He said that because of the kidney function, he could not do a CTA. He proposed medical management for now and if the ulcers did not heal with that he would consider re-evaluation at that point. The patient is doing much bet ter right now. She is working well with physical therapy. She is right now medically stable [facility] She is asked to come back to the emergency room in case symptoms recu r. Total time for this discharge took 35 minutes.
[2017-03-07 07:57] VITALS: TEMP 99
[2017-03-07] MEDS: Insulin Detemir 100 UNITS/ML 10 UNITS in Pre-Filled Syringe 1 EACH SC SCH (09:11)
[2017-03-07] MEDS: Carvedilol 6.25 MG TAB PO SCH (09:12)
[2017-03-07] MEDS: Heparin 5,000 UNITS/ML VIAL SC SCH ×2 (09:12→15:22)
[2017-03-07] MEDS: Cephalexin 250 MG CAP PO SCH ×2 (09:12→15:22)
[2017-03-07] MEDS: Furosemide 40 MG TAB PO SCH (09:13)
[2017-03-07] MEDS: hydrALAZINE 25 MG TAB PO SCH ×2 (09:13→15:23)
[2017-03-07 09:36] VITALS: BP 154/64
[2017-03-07 11:15] LABS: Anion Gap 14 mmol/L (10-20); BUN (Urea Nitrogen) 35 mg/dL (9.8-20.1); Calc. Creatinine Clearance 52 mL/min (70-130); Calcium 10.4 mg/dL (7.8-10.44); Carbon Dioxide 24 mmol/L (23-31); Chloride 104 mmol/L (98-107); Estimated GFR-MDRD 39
--- NOTE | 2017-03-07 12:08 | PRG ---
DATE OF SERVICE: 03/05/2017 SUBJECTIVE: This is an 81-year-old female being seen for acute kidney injury. The patient denies an y nausea, vomiting or chest pain. PHYSICAL EXAMINATION: GENERAL: Patient is awake, alert. VITAL SIGNS: Afebrile, pulse 87, breathing at 16, blood pressure 154/64. HEAD/NECK: Normocephalic. Atraumatic. EYES: EOMI. No deformity. EARS: Clear. No ulcers. NOSE: Intact. No lesions. MOUTH: Clear. No discharge. THROAT: Clear. No exudate. LUNGS: Clear. No crackles. CARDIAC: S1, S2. No rub. ABDOMEN: Benign. BS+. GENITALIA/RECTUM: Mcgovern absent. BACK/EXTREMITIES: Edema 0+ Ulcer- NEUROLOGICAL: Alert and motor intact. SKIN: Rash- Bruise- LYMPHATICS: Edema- Ulcer- LABORATORY DATA: Show hemoglobin was 9.2, creatinine was 1.5, potassium 3.4. ASSESSMENT: 1. Acute kidney injury with chronic kidney disease stage 3, stable. 2. Hypertension, stable. 3. Anemia, stable. 4. Medications based on glomerular filtration rate are appropriate. I will sign off on this patient. Please reconsult as needed.
[2017-03-07] MEDS: Insulin Regular 300 UNITS/3 ML VIAL SC PRN ×2 (13:26→15:53)
[2017-03-07] MEDS: HYDROcodone/Acetaminophen 10/325 mg Tablet PO PRN (13:59)
--- NOTE | 2017-03-07 15:13 | PDOC.PN ---
- Subjective Encounter Start Date: 03/07/17 Encounter Start Time: 15:11 Patient seen and examined. No new complaints. No overnight events - Objective MAR Reviewed: Yes Vital Signs & Weight: Vital Signs (12 hours) Temp Pulse Resp BP BP Pulse Ox 03/07/17 09:13 87 03/07/17 09:12 154/64 H 03/07/17 08:00 99.0 F 87 12 98 03/07/17 07:10 99.0 F 87 12 153/70 H 98 Weight Admit Weight 254 lb Weight 251 lb 1 oz I&O: 03/06/17 03/07/17 03/08/17 06:59 06:59 06:59 Intake Total 1250 2100 Balance 1250 2100 Result Diagrams: 03/03/17 05:21 03/07/17 10:33 Additional Labs: Accuchecks 03/07/17 03/07/17 03/07/17 11:27 09:02 04:30 POC Glucose 172 H 178 H 123 H 03/06/17 03/06/17 03/06/17 23:50 19:19 15:44 POC Glucose 168 H 184 H 231 H Phys Exam - Physical Examination Constitutional: NAD HEENT: PERRLA Neck: no JVD Respiratory: no wheezing Cardiovascular: no significant murmur Gastrointestinal: non-tender Musculoskeletal: edema present dressing in place Neurological: moves all 4 limbs Psychiatric: A&O x 3 Dx/Plan (1) Peripheral vascular disease Code(s): I73.9 - PERIPHERAL VASCULAR DISEASE, UNSPECIFIED Status: Acute (2) Diabetes mellitus type 2 in obese Code(s): E11.69 - TYPE 2 DIABETES MELLITUS WITH OTHER SPECIFIED COMPLICATION; E66.9 - OBESITY, UNSPECIFIED Status: Chronic Comment: uncontrolled (3) Acute worsening of stage 3 chronic kidney disease Code(s): N18.3 - CHRONIC KIDNEY DISEASE, STAGE 3 (MODERATE) Status: Acute Comment: will recheck (4) Cellulitis and abscess of left leg Code(s): L03.116 - CELLULITIS OF LEFT LOWER LIMB; L02.416 - CUTANEOUS ABSCESS OF LEFT LOWER LIMB Status: Acute (5) Hypokalemia Code(s): E87.6 - HYPOKALEMIA Status: Acute (6) Hypertension Code(s): I10 - ESSENTIAL (PRIMARY) HYPERTENSION Status: Chronic Qualifiers: Hypertension type: essential hypertension Qualified Code(s): I10 - Essential (primary) hypertension (7) Morbid obesity with BMI of 40.0-44.9, adult Code(s): E66.01 - MORBID (SEVERE) OBESITY DUE TO EXCESS CALORIES; Z68.41 - BODY MASS INDEX (BMI) 40.0-44.9, ADULT Status: Chronic (8) Diastolic CHF Code(s): I50.30 - UNSPECIFIED DIASTOLIC (CONGESTIVE) HEART FAILURE Status: Acute Comment: ef- 60% - Plan * doing good * d/c home * f/u with lymphedema clinic
--- NOTE | 2017-03-08 00:29 | ADD-DIS ---
ADDENDUM The patient had to stay in the hospital because the family was deciding disposition. They have chose n to take her home with outpatient followup with Lymphedema clinic. Arrangements for that has been giana conde. She has been stable over the last 24 hours. She is right now medically stable to be discharged with outpatient followup by the [facility] Surgery, Dr. Rosales and the kidney specialist. She is asked to come back to the emergency room in case symptoms recur. Total time for this discharge took 35 minutes.
== END 2017-03-07 16:38 | disposition home or self-care (01) | DRG 603 ==
LOC: ERS 17:43 → T4-A 22:25 → 2NO 02-27 01:45 → ONC 03-03 19:30
PROVIDERS: ADMIT Internal Medicine; ATTEND Internal Medicine
DX: L03.116 Cellulitis of left lower limb (principal); E44.0 Moderate protein-calorie malnutrition; N17.9 Acute kidney failure, unspecified; N18.4 Chronic kidney disease, stage 4 (severe); I13.0 Hypertensive heart and chronic kidney disease with heart failure and stage 1 through stage 4 chronic kidney disease, or unspecified chronic kidney disease; I50.32 Chronic diastolic (congestive) heart failure; Z68.41 Body mass index [BMI] 40.0-44.9, adult; I83.228 Varicose veins of left lower extremity with both ulcer of other part of lower extremity and inflammation; N25.81 Secondary hyperparathyroidism of renal origin; L97.529 Non-pressure chronic ulcer of other part of left foot with unspecified severity; L02.416 Cutaneous abscess of left lower limb; E11.22 Type 2 diabetes mellitus with diabetic chronic kidney disease; E11.65 Type 2 diabetes mellitus with hyperglycemia; D63.1 Anemia in chronic kidney disease; E87.6 Hypokalemia; B95.61 Methicillin susceptible Staphylococcus aureus infection as the cause of diseases classified elsewhere; I25.5 Ischemic cardiomyopathy; E66.01 Morbid (severe) obesity due to excess calories; E11.51 Type 2 diabetes mellitus with diabetic peripheral angiopathy without gangrene; E88.09 Other disorders of plasma-protein metabolism, not elsewhere classified; Z79.82 Long term (current) use of aspirin; Z79.4 Long term (current) use of insulin; E78.5 Hyperlipidemia, unspecified; Z87.891 Personal history of nicotine dependence; M19.90 Unspecified osteoarthritis, unspecified site; I44.0 Atrioventricular block, first degree
CPT/HCPCS: 36415; 36416; 80048; 80053; 80069; 80202; 82550; 82553; 83605; 84484; 85007; 85025; 85027; 85652; 86140; 87040; 87070; 87077; 87186; 87205; 93005; 93923; 96365; 96375; A4216; G8978-GP-CM; G8979-GP-CK; G8987-GO-CJ; G8988-GO-CH; J0360; J1644; J1815; J2543; J3370; J7050

== ENCOUNTER 2017-05-16 10:43 | Observation (INO) | payer MEDICARE ==
[2017-05-16 11:52] LABS: #Eosinphils 0.2 thou/uL (0.0-0.7); #Lymphocytes 1.8 thou/uL (1.20-3.40); #Monocytes 0.7 thou/uL (0.11-0.59); #Neutrophils 4.2 thou/uL (1.40-6.50); %Basophils 0.4 % (0.0-1.0); %Eosinophils 2.5 % (0.0-10.0); %Lymphocytes 25.8 % (21.0-51.0); %Monocytes 10.6 % (0.0-10.0); %Neutrophils 60.7 % (42.0-75.0); Hemoglobin 11.7 g/dL (12.0-16.0); Mean Corpuscular HGB CONC 30.7 g/dL (32.0-36.0); Mean Corpuscular Hemoglobin 26.9 pg (27.0-31.0); Mean Corpuscular Volume 87.8 fl (81.0-99.0); Mean Platelet Volume 8.1 fL (7.4-10.4); Platelet Count 165 thou/uL (130-400); RBC Distribution Width 15.3 % (11.5-14.5); Red Blood Cell (RBC) Count 4.33 mill/uL (4.20-5.40)
[2017-05-16 11:58] LABS: INR-International Normal Ratio 1.1; PTT 31.4 SEC (22.9-36.1); Prothrombin Time 14.1 SEC (12.0-14.7)
--- NOTE | 2017-05-16 12:02 | CT ---
CT HEAD NONCONTRAST: Date: 05/16/17 HISTORY: Altered mental status. COMPARISON: 01/05/16. FINDINGS: There is no evidence of acute intracranial hemorrhage or infarct. A small focus of dystrophic calcifi cation along a right frontal convexity is stable. There is no mass effect or shift of midline structu res. Visualized paranasal sinuses remain well aerated. IMPRESSION: No acute intracranial abnormalities are demonstrated on noncontrast CT head. POS: [facility]
[2017-05-16 12:10] LABS: PLT Morphology Comment Appears Adequate
[2017-05-16 12:11] LABS: CKMB 1.7 ng/mL (0-6.6)
[2017-05-16 12:13] LABS: ALT (SGPT) 10 U/L (8-55); AST (SGOT) 20 U/L (5-34); Alkaline Phosphatase 63 U/L (40-150); Anion Gap 14 mmol/L (10-20); BUN (Urea Nitrogen) 21 mg/dL (9.8-20.1); Bilirubin, Total 0.5 mg/dL (0.2-1.2); CK (CPK) 113 U/L (29-168); Calc. Creatinine Clearance 0 mL/min (70-130); Calcium 9.9 mg/dL (7.8-10.44); Carbon Dioxide 25 mmol/L (23-31); Chloride 107 mmol/L (98-107); Estimated GFR-MDRD 50; Globulin 4.6 g/dL (2.4-3.5); Glucose 86 mg/dL (83-110); Potassium 4.1 mmol/L (3.5-5.1); Protein, Total 7.6 g/dL (6.0-8.3); Sodium 142 mmol/L (136-145)
[2017-05-16] MEDS ORDERED: hydrALAZINE 20 MG/ML VIAL ONE (14:09)
[2017-05-16] MEDS ORDERED: Aspirin 325 MG TAB ONE (14:09)
[2017-05-16] MEDS ORDERED: Carvedilol 6.25 MG TAB PO SCH (14:15)
--- NOTE | 2017-05-16 15:45 | RAD ---
PORTABLE CHEST: 05/16/17 HISTORY: Shortness of breath. COMPARISON: 01/05/16 exam. Heart size is enlarged. Pulmonary vessels appear mildly engorged. There is some blunting to the costo phrenic angles suggesting some effusions. IMPRESSION: Cardiomegaly with changes suggesting some mild pulmonary edema. POS: [facility]
--- NOTE | 2017-05-16 16:21 | HP ---
PRIMARY CARE PHYSICIAN: Dr. Ian Holloway. REASON FOR ADMISSION: Altered mental status. HISTORY OF PRESENT ILLNESS: An 82-year-old -[place] female who lives at home with family. S he is ambulating with a walker. She does have chronic wound over left lower extremity and that is ta and[facility]. Patient's family member noticed that she was acting strange and she w as appeared confused since yesterday. Patient was going to kitchen for bathroom. She was using stoo l as toilet. This type of strange behavior was going on since yesterday and that is why family lm ramirez made appointment with primary care physician. Primary care physician sent her to the emergency cade for rule out CVA. The patient's family member also noticed that her speech was a little bit slurre d and she was off the balance. With these symptoms, she presented in the emergency room. When I saw this patient in the emergency r oom, she is able to tell appropriate answer well. [facility] does [facility], but she was hypertensive with blood pressure was 230/84. Her wound was foul smelling. She denies any fever or chills. She denies any UTI symptoms. She denies any constipation, diarrhea, melena or hematochezia. She denies any chest pain, palpitations or shortness of breath at this poin t. In the emergency room, routine blood tests were done including CT brain, which was unremarkable. CBC , BMP and LFT were unremarkable. She does have a slightly indeterminate troponin, but which is chron ically elevated in the past as well. At this point, the patient is being admitted to hospital for rule out CVA. REVIEW OF SYSTEMS: Please see my HPI for pertinent positives and negatives. All other review of sys tems reviewed and negative except as mentioned in the HPI. Constitutional: Weight loss or gain, ability to conduct usual activities. Skin: Rash, itching. Eyes: Double vision, pain. ENT/Mouth: Nose bleeding, neck stiffness, pain, tenderness. Cardiovascular: Palpitations, dyspnea on exertion, orthopnea. Respiratory: Shortness of breath, wheezing, cough, hemoptysis, fever or night sweats. Gastrointestinal: Poor appetite, abdominal pain, heartburn, nausea, vomiting, constipation, or diarr hea. Genitourinary: Urgency, frequency, dysuria, nocturia. Musculoskeletal: Pain, swelling. Neurologic/Psychiatric: Anxiety, depression. Allergy/Immunologic: Skin rash, bleeding tendency. ALLERGIES: No known drug allergies. CURRENT HOME MEDICATIONS: Crestor 20 mg p.o. at bedtime, Lasix 40 mg p.o. b.i.d., Coreg 25 mg p.o. b .i.d., valsartan with hydrochlorothiazide 320/12.5 one tablet p.o. daily, Lyrica 75 mg p.o. b.i.d. an d Levemir insulin variable dose. PAST MEDICAL HISTORY: Diabetes type 2, diabetic neuropathy, hypertension, dyslipidemia, chronic banks tolic heart failure, morbid obesity and osteoarthritis. PAST SURGICAL HISTORY: Appendicectomy and hysterectomy. PAST PSYCHIATRIC HISTORY: Reviewed and negative. SOCIAL HISTORY: Patient lives at home with the family. No history of tobacco, alcohol or illicit dr ug abuse. FAMILY HISTORY: No strong family history of premature coronary artery disease, stroke or cancer. EMERGENCY ROOM COURSE: Patient is given Coreg 12.5 mg, hydralazine 10 mg IV and aspirin 325 mg. PHYSICAL EXAMINATION: VITAL SIGNS: On arrival, blood pressure 182/102. Currently, blood pressure 230/84, pulse 83, respir atory rate 18, temperature 98.2, saturation 95% on room air and weight 114.3 kilograms. GENERAL: Currently, the patient is hypertensive, in no obvious acute distress, alert and oriented x3 . HEAD: Normocephalic and atraumatic. EYES: Pupils are round and reactive to light. Extraocular muscle intact. ENT: Oropharynx within normal limits. Moist mucous membranes. No oral lesions. No pharyngeal eryt flavia, no exudate. NECK: Supple. No JVD, no meningeal signs of irritation. LUNGS: Clear to auscultation without any rhonchi or rales. CARDIAC: S1 and S2 regular without any murmur. ABDOMEN: Obesity present. Bowel sounds present. Nontender and nondistended. No organomegaly, no m ass, no suprapubic tenderness. BACK: Unremarkable. No CVA tenderness. EXTREMITIES: Upper extremity; passive movement of all joints are normal. Lower extremity; right low er extremity has pitting edema, dry skin with normal capillary refill. Left lower extremity has open ulcer to the carey anteriorly and a wound VAC was presented at distal posterior calf and both lower e xtremities wound is smelling foul with some yellowish drainage. NEUROLOGIC: Nonfocal examination. She is able to move all four limbs, though she is not able to sta nd by herself at this point, but I could not elicit any focal neurological deficit. SKIN: No skin rash. PSYCHIATRIC: Normal affect. SIGNIFICANT LABS AND IMAGING DATA: 1. EKG showing first-degree AV block and premature atrial complexes. Chest x-ray based on my review , no acute cardiopulmonary process. 2. CBC based on my review, WBC 7.0, hemoglobin 11.7 and platelets 165. INR 1.1. BMP: Sodium 142, potassium 4.1, chloride 107, carbon dioxide 25, anion gap 14, BUN 21, creatinine 1.25, glucose 86 and calcium 9.9. 3. LFT: AST 20, ALT 10, alkaline phosphatase 63, albumin 3.0. CK 113, CK-MB 1.7, troponin I 0.100. 4. CT brain based on my review, no acute intracranial process. ASSESSMENT, PLAN AND IMPRESSION: 1. Altered mental status. At this point, the patient does not have any focal neurological deficit. Etiology of altered mental status is unclear, but it is currently resolved, could be hypertension re lated. Rule out cerebrovascular accident per primary care physician. We will try to obtain MRI brai n to rule out any cerebrovascular accident and carotid ultrasound to rule out any carotid stenosis. During this admission, we will monitor neurologically and we will monitor telemetry as well. We will also check B12, folate, TSH, RPR, homocysteine as a part of altered mental status workup. 2. Elevated troponin. This patient does have chronically elevated troponin. We will do serial card iac enzymes x3 to see the trend of troponin. 3. Left lower extremity wound. Wound care team will be consulted. 4. Chronic kidney disease stage 3. We will monitor renal function and avoid nephrotoxic agents. 5. Hypertension with hypertensive urgency. We will put on nitropatch q.8 hourly and continue her ho me medication including Lasix, Coreg, valsartan and hydrochlorothiazide as per home dosage. We will also use hydralazine on p.r.n. basis for better blood pressure control. 6. Diabetes type 2. We will continue Humalog insulin as per sliding scale per protocol, diabetic di et will be given and will resume her home dose of Levemir. 7. Diabetic neuropathy. Continue Lyrica 75 mg p.o. twice daily. 8. Morbid obesity. Dietary education given, weight loss education given. 9. Osteoarthritis. The patient will be given pain medication as symptomatically. 10. Deep venous thrombosis prophylaxis. Lovenox 40 mg subcu daily. 11. Gastrointestinal prophylaxis. Pepcid 20 mg p.o. b.i.d. 12. Chronic diastolic heart failure. Currently the patient appears to be euvolemic. We will check BNP. We will continue her home dose of Lasix 40 mg p.o. b.i.d. CODE STATUS: Patient is FULL CODE. Patient's daughter is the surrogate decision maker. Disposition plan based on clinical course.
[2017-05-16] MEDS ORDERED: HumaLOG 300 UNITS/3 ML VIAL SC PRN ×2 (16:59)
[2017-05-16] MEDS ORDERED: Zolpidem Tartrate 5 MG TAB PO PRN (16:59)
[2017-05-16] MEDS ORDERED: Ondansetron ODT 4 MG TAB PO PRN (16:59)
[2017-05-16] MEDS ORDERED: Senokot 8.6 MG TAB PO PRN (16:59)
[2017-05-16] MEDS ORDERED: Artificial Tear Sol 15 ML BOT EA EYE PRN (16:59)
[2017-05-16] MEDS ORDERED: Chloraseptic Spray 180 ml Bottle PO PRN (16:59)
[2017-05-16] MEDS ORDERED: Loperamide HCl 2 MG CAP PO PRN (16:59)
[2017-05-16] MEDS ORDERED: Eucerin (Mineral Oil/Petrolatum,White) 30 gm Jar TOP PRN (16:59)
[2017-05-16] MEDS ORDERED: Mag-Al 1200 mg/1200 mg/30 ML UDCUP PO PRN (16:59)
[2017-05-16] MEDS ORDERED: Loratadine 10 MG TAB PO PRN (16:59)
[2017-05-16] MEDS ORDERED: Ondansetron HCl/PF 4 MG/2 ML Vial IVP PRN (16:59)
[2017-05-16] MEDS ORDERED: Acetaminophen 325 MG TAB PO PRN (16:59)
[2017-05-16] MEDS ORDERED: Diabetic Tussin 200 MG/10 ML UDCUP PO PRN (16:59)
[2017-05-16] MEDS ORDERED: Dextrose 50% Abboject 50 ML SYRINGE SLOW IVP PRN (16:59)
[2017-05-16] MEDS ORDERED: HYDROcodone/Acetaminophen 5/325 mg Tablet PO PRN (16:59)
[2017-05-16] MEDS ORDERED: Milk Of Magnesia 30 ML UDCUP PO PRN (16:59)
[2017-05-16] MEDS ORDERED: Dextrose 5% in Water 1,000 ML IV PRN (16:59)
[2017-05-16] MEDS ORDERED: hydrALAZINE 20 MG/ML VIAL SLOW IVP PRN (16:59)
[2017-05-16] MEDS ORDERED: Nitroglycerin 0.4 MG TAB (25 Tab Bottle) SL PRN (16:59)
[2017-05-16] MEDS ORDERED: Sodium Chloride 0.65% Nasal 44 ML BOT EA NARE PRN (16:59)
[2017-05-16 17:34] VITALS: BMI 49.4
[2017-05-16] MEDS: Carvedilol 25 MG TAB PO SCH (18:12)
[2017-05-16 19:57] LABS: Troponin I 0.102 ng/mL (< 0.028)
--- NOTE | 2017-05-16 20:07 | ULT ---
BILATERAL CAROTID DUPLEX ULTRASOUND WITH SPECTRAL ANALYSIS AND COLOR FLOW EVALUATION 05/16/17 HISTORY: Altered mental status. FINDINGS: Cueto scale, color flow, doppler evaluation and spectral analysis of the bilateral carotid arteries is performed with 2D imaging. There is calcified atherosclerotic plaque seen within the bilateral carot id arteries as well as the carotid bulbs and proximal internal carotid arteries bilaterally, greatest involving the proximal right internal carotid artery. There is less than 50% maximal stenosis in the bilateral internal carotid arteries according to the p eak systolic velocities in the ICA/CCA ratios. The peak systolic velocity in the right ICA is 97.8 cm /s with an ICA/CCA ratio of 1.48. The peak systolic velocity in the left ICA is 98.5 cm/s with an ICA /CCA ratio of 1.38. There is an elevated peak systolic velocity in the left external carotid artery suggesting a signific ant stenosis. Antegrade flow is demonstrated in the vertebral arteries bilaterally. IMPRESSION: 1. No hemodynamically significant stenosis in the bilateral internal carotid arteries. 2. Calcified atherosclerotic plaque seen within the common carotid and proximal internal carotid arteries bilaterally. POS: [facility]
[2017-05-16] MEDS: Pregabalin 75 MG CAP PO SCH (20:24)
[2017-05-16] MEDS ORDERED: Rosuvastatin 20 MG TAB PO SCH (21:00)
[2017-05-17 04:31] LABS: #Eosinphils 0.1 thou/uL (0.0-0.7); #Lymphocytes 1.1 thou/uL (1.20-3.40); #Monocytes 0.6 thou/uL (0.11-0.59); #Neutrophils 3.2 thou/uL (1.40-6.50); %Basophils 0.2 % (0.0-1.0); %Eosinophils 2.7 % (0.0-10.0); %Lymphocytes 21.3 % (21.0-51.0); %Monocytes 12.1 % (0.0-10.0); %Neutrophils 63.8 % (42.0-75.0); Hemoglobin 10.4 g/dL (12.0-16.0); Mean Corpuscular HGB CONC 31.4 g/dL (32.0-36.0); Mean Corpuscular Hemoglobin 27.6 pg (27.0-31.0); Mean Corpuscular Volume 87.8 fl (81.0-99.0); Mean Platelet Volume 8.1 fL (7.4-10.4); Platelet Count 159 thou/uL (130-400); RBC Distribution Width 15.3 % (11.5-14.5); Red Blood Cell (RBC) Count 3.77 mill/uL (4.20-5.40)
[2017-05-17 04:46] LABS: Anion Gap 12 mmol/L (10-20); BUN (Urea Nitrogen) 22 mg/dL (9.8-20.1); Calc. Creatinine Clearance 68 mL/min (70-130); Calcium 9.6 mg/dL (7.8-10.44); Carbon Dioxide 26 mmol/L (23-31); Cardiac Risk 3.4 (Less than 4.5); Chloride 108 mmol/L (98-107); Cholesterol 164 mg/dl (< 200 Desired); Estimated GFR-MDRD 53; Glucose 200 mg/dL (83-110); HDL Cholesterol 48 mg/dL (>60 Neg Risk); LDL Cholesterol, Calculated 96 mg/dL; Potassium 3.7 mmol/L (3.5-5.1); Sodium 142 mmol/L (136-145); Triglycerides 98 mg/dL (Less than 150)
[2017-05-17 05:36] LABS: Syphilis Antibody Nonreactive (Nonreactive); Syphilis Antibody Index 0.09 S/CO (<1.00 Non-Reactive)
[2017-05-17 05:52] LABS: Folate (Folic Acid) 14.2 ng/mL (7.0-31.4)
[2017-05-17] MEDS ORDERED: Aspirin 325 MG TAB PO SCH (09:00)
[2017-05-17] MEDS ORDERED: Hydrochlorothiazide 25 MG TAB PO SCH (09:00)
[2017-05-17] MEDS ORDERED: Furosemide 40 MG TAB PO SCH (09:00)
[2017-05-17] MEDS ORDERED: Enoxaparin Sodium 40 MG/0.4 ML SYRINGE SC SCH (09:00)
[2017-05-17] MEDS ORDERED: Valsartan 80 MG TAB PO SCH (09:00)
[2017-05-17] MEDS ORDERED: Famotidine 20 MG TAB PO SCH (09:00)
[2017-05-17] MEDS: Pregabalin 75 MG CAP PO SCH (09:25)
[2017-05-17] MEDS: Carvedilol 25 MG TAB PO SCH (09:25)
--- NOTE | 2017-05-17 09:25 | MRI ---
MRI BRAIN WITHOUT CONTRAST: Date: 05/17/17 HISTORY: Altered mental status. FINDINGS: Correlation is made with previous day's CT scan. No restricted diffusion is seen. No evidence of infarct, hemorrhage, midline shift, or abnormal extra -axial fluid collections are identified. Multifocal of T2 prolongation in the periventricular white m atter are consistent with chronic small vessel ischemic disease. Ventricular sulcal prominence is con sistent with age-appropriate volume loss. The visualized paranasal sinuses and mastoid air cells are well aerated. IMPRESSION: 1. No evidence of acute intracranial process. 2. Cortical atrophy. 3. Chronic small vessel ischemic disease. POS: [facility]
--- NOTE | 2017-05-17 10:09 | PDOC.PN ---
- Subjective Encounter Start Date: 05/17/17 Encounter Start Time: 07:20 -: old records requested/rev Patient seen and examined. No new complaints. No overnight events - Objective Resuscitation Status: Resuscitation Status FULL:Full Resuscitation MAR Reviewed: Yes Vital Signs & Weight: Vital Signs (12 hours) Temp Pulse Resp BP Pulse Ox 05/17/17 07:56 98.7 F 67 20 97 05/17/17 04:50 98.5 F 68 16 171/82 H 93 L 05/16/17 23:56 95 05/16/17 23:55 97.9 F 74 15 141/53 H 92 L Weight Admit Weight 253 lb Weight 253 lb I&O: 05/16/17 05/17/17 05/18/17 06:59 06:59 06:59 Intake Total 360 Balance 360 Result Diagrams: 05/17/17 04:05 05/17/17 04:05 Additional Labs: Accuchecks 05/17/17 05/16/17 05/16/17 06:50 23:56 16:32 POC Glucose 173 H 237 H 183 H Radiology Reviewed by me: Yes (MRI, carotid US) EKG Reviewed by me: Yes (nsr) Phys Exam - Physical Examination Constitutional: NAD HEENT: PERRLA, moist MMs, sclera anicteric Neck: no JVD, supple Respiratory: no wheezing, no rales, no rhonchi Cardiovascular: RRR, no significant murmur, no rub Gastrointestinal: soft, non-tender, no distention, positive bowel sounds left lower extrimity with wound with dressing Neurological: non-focal, normal sensation, moves all 4 limbs Psychiatric: normal affect, A&O x 3 Skin: no rash, normal turgor Dx/Plan (1) Altered mental status, unspecified Code(s): R41.82 - ALTERED MENTAL STATUS, UNSPECIFIED Status: Resolved (2) Wound of left lower extremity Code(s): S81.802A - UNSPECIFIED OPEN WOUND, LEFT LOWER LEG, INITIAL ENCOUNTER Status: Chronic (3) CKD (chronic kidney disease) stage 3, GFR 30-59 ml/min Code(s): N18.3 - CHRONIC KIDNEY DISEASE, STAGE 3 (MODERATE) Status: Chronic Comment: (4) Chronic diastolic (congestive) heart failure Code(s): I50.32 - CHRONIC DIASTOLIC (CONGESTIVE) HEART FAILURE Status: Chronic (5) Diabetes type 2, controlled Code(s): E11.9 - TYPE 2 DIABETES MELLITUS WITHOUT COMPLICATIONS Status: Chronic Qualifiers: (6) Elevated troponin I level Code(s): R74.8 - ABNORMAL LEVELS OF OTHER SERUM ENZYMES Status: Chronic (7) Hypertension Code(s): I10 - ESSENTIAL (PRIMARY) HYPERTENSION Status: Chronic Qualifiers: (8) Hyperuricemia Code(s): E79.0 - HYPERURICEMIA W/O SIGNS OF INFLAM ARTHRIT AND TOPHACEOUS DIS Status: Chronic (9) Morbid obesity with BMI of 45.0-49.9, adult Code(s): E66.01 - MORBID (SEVERE) OBESITY DUE TO EXCESS CALORIES; Z68.42 - BODY MASS INDEX (BMI) 45.0-49.9, ADULT Status: Chronic (10) Peripheral vascular disease Code(s): I73.9 - PERIPHERAL VASCULAR DISEASE, UNSPECIFIED Status: Chronic - Plan cont current plan of care * stroke ruled out * back to normal * medication reviewed as below * symptomatic treatment * plan for discharge today. Review of Systems - Review of Systems ENT: negative: Ear Pain, Ear Discharge, Nose Pain, Nose Discharge, Nose Congestion, Mouth Pain, Mouth Swelling, Throat Pain, Throat Swelling, Other Respiratory: negative: Cough, Dry, Shortness of Breath, Hemoptysis, SOB with Excertion, Pleuritic Pain, Sputum, Wheezing Cardiovascular: negative: chest pain, palpitations, orthopnea, paroxysmal nocturnal dyspnea, edema, light headedness, other Gastrointestinal: negative: Nausea, Vomiting, Abdominal Pain, Diarrhea, Constipation, Melena, Hematochezia, Other Genitourinary: negative: Dysuria, Frequency, Incontinence, Hematuria, Retention , Other Musculoskeletal: negative: Neck Pain, Shoulder Pain, Arm Pain, Back Pain, Hand Pain, Leg Pain, Foot Pain, Other Skin: negative: Rash, Lesions, Sharath, Bruising, Other - Medications/Allergies Allergies/Adverse Reactions: Allergies Allergy/AdvReac Type Severity Reaction Status Date / Time No Known Drug Allergies Allergy Verified 05/16/17 17:42 Medications: Current Medications Acetaminophen (Tylenol) 650 mg PO Q4H PRN PRN Reason: Headache/Fever or Pain Last Admin: 05/16/17 20:31 Dose: 650 mg Hydrocodone Bitart/Acetaminophen ([place] 5/325) 1 tab PO Q4H PRN PRN Reason: Moderate Pain (4-6) Al Hydroxide/Mg Hydroxide (Maalox) 30 ml PO Q6H PRN PRN Reason: Heartburn or Indigestion Artificial Tears (Tears Renewed 15ml Bottle) 0 drop EA EYE PRN PRN PRN Reason: Dry Eyes Aspirin (Aspirin) 325 mg PO DAILY [facility] Last Admin: 05/17/17 09:24 Dose: 325 mg Carvedilol (Coreg) 25 mg PO BID-[facility] Last Admin: 05/17/17 09:25 Dose: 25 mg Dextrose/Water (Dextrose 50%) 25 gm SLOW IVP PRN PRN PRN Reason: Hypoglycemia Enoxaparin Sodium (Lovenox) 40 mg SC 0900 [facility] Last Admin: 05/17/17 09:21 Dose: 40 mg Famotidine (Pepcid) 20 mg PO DAILY [facility] Last Admin: 05/17/17 09:24 Dose: 20 mg Furosemide (Lasix) 40 mg PO 0900,1400 [facility] Last Admin: 05/17/17 09:24 Dose: 40 mg Glucagon (Glucagon) 1 mg IM PRN PRN PRN Reason: Hypoglycemia Guaifenesin (Robitussin Sf) 200 mg PO Q4H PRN PRN Reason: Cough Hydralazine HCl (Apresoline) 10 mg SLOW IVP Q4H PRN PRN Reason: Systolic BP > 180 Last Admin: 05/16/17 19:23 Dose: 10 mg Hydrochlorothiazide (Hydrochlorothiazide) 12.5 mg PO DAILY [facility] Last Admin: 05/17/17 09:22 Dose: 12.5 mg Dextrose/Water (D5w) 1,000 mls @ 0 mls/hr IV .Q0M PRN; As Directed PRN Reason: Hypoglycemia Insulin Human Lispro (Humalog) 0 units SC .MODERATE SLIDING SC PRN PRN Reason: Moderate Correctional Scale Last Admin: 05/17/17 07:43 Dose: 2 unit Insulin Human Lispro (Humalog) 0 units SC .BEDTIME SLIDING SC PRN PRN Reason: Bedtime Correctional Scale Loperamide HCl (Imodium) 2 mg PO PRN PRN PRN Reason: Diarrhea/Loose Stools Loratadine (Claritin) 10 mg PO DAILYPRN PRN PRN Reason: Sinus Symptoms Magnesium Hydroxide (Milk Of Magnesium) 30 ml PO DAILYPRN PRN PRN Reason: Constipation Mineral Oil/White Petrolatum (Eucerin Cream) 0 gm TOP BIDPRN PRN PRN Reason: Dry Skin Nitroglycerin (Nitrostat) 0.4 mg SL Q5MIN PRN PRN Reason: Chest Pain Ondansetron HCl (Zofran Odt) 4 mg PO Q6H PRN PRN Reason: Nausea/Vomiting Ondansetron HCl (Zofran) 4 mg IVP Q6H PRN PRN Reason: Nausea/Vomiting Phenol (Chloraseptic [place] 180 Ml Bot) 0 ml PO PRN PRN PRN Reason: Sore Throat Pneumococcal 13-Valent Conj Vacc (Prevnar) 0.5 ml IM .ONCE ONE Stop: 05/17/17 21:01 Pregabalin (Lyrica) 75 mg PO BID [facility] Last Admin: 05/17/17 09:25 Dose: 75 mg Rosuvastatin Calcium (Crestor) 20 mg PO HS [facility] Last Admin: 05/16/17 20:24 Dose: 20 mg Senna (Senokot) 2 tab PO HSPRN PRN PRN Reason: Constipation Sodium Chloride (Obion Nasal [place] 0.65%) 0 ml EA NARE QIDPRN PRN PRN Reason: Nasal Congestion Valsartan (Diovan) 320 mg PO DAILY [facility] Last Admin: 05/17/17 09:24 Dose: 320 mg Zolpidem Tartrate (Ambien) 5 mg PO HSPRN PRN PRN Reason: Insomnia
[2017-05-17 11:42] VITALS: BP 145/94; TEMP 97.9
--- NOTE | 2017-05-17 11:42 | DIS ---
DATE OF ADMISSION: 05/16/2017 DATE OF DISCHARGE: 05/17/2017 PRIMARY CARE PHYSICIAN: Ian Holloway M.D. DISCHARGE DISPOSITION: Home. PRIMARY DISCHARGE DIAGNOSIS: Altered mental status, ruled out cerebrovascular accident. SECONDARY DISCHARGE DIAGNOSES: Chronic wound over left lower extremity, peripheral vascular disease, morbid obesity with body mass index 49, chronically elevated troponins, hypouricemia, gout, hyperten sammy, diabetes type 2, chronic kidney disease stage 3, chronic diastolic heart failure. PRIMARY PROCEDURE/OPERATION: None. RADIOLOGICAL INVESTIGATION: CT brain was normal. Chest x-ray was normal. Carotid Doppler showed at herosclerotic plaque. MRI brain showed cortical atrophy, but no acute process. SIGNIFICANT LABORATORY DATA: WBC 5.0, hemoglobin 10.4, platelets 159. INR 1.1, sodium 142, potassiu m 3.7, BUN 22, creatinine 1.18, calcium 9.6. Ammonia 21. B12 431. Folate 14.20. Homocysteine 11.1 . TSH 1.15 and LDL 96. RPR negative. DISCHARGE MEDICATIONS: Aspirin 81 mg p.o. daily, Coreg 12.5 mg p.o. b.i.d., ferrous sulfate 325 mg p .o. daily, Lasix 40 mg p.o. daily, Levemir insulin 10 unit subcu b.i.d., Humalog insulin as per slidi ng scale, Lyrica 75 mg p.o. b.i.d., and Crestor 20 mg p.o. daily. CONTRAINDICATIONS: None. CODE STATUS: FULL CODE. INPATIENT CONSULTANTS: None. ALLERGIES: No known drug allergy. DISCHARGE PLAN: Post hospital, patient will follow up with primary care physician in 1 week. HOSPITAL COURSE: An 82-year-old female who appeared to be altered mentally as well as she appeared c onfused to her daughter and that is why she made an appointment with primary care physician and prima care physician sent her to the ER for rule out CVA. We kept this patient on stroke floor and we d id a neuro check. When we saw this patient at that time, she was completely alert and oriented x3, a nd we could not find any focal neurological deficit. This patient does have chronic wound over lower extremity and for that reason she is getting wound care with the Wound Care team. Overnight, we did neuro check without any problem. Telemetry remained unremarkable. We did a caroti d Doppler study, which was unremarkable other than atherosclerotic plaque. She had MRI brain which w as also unremarkable without any acute stroke. We continued all her previous medication. In this wa y, while in hospital, we ruled out cerebrovascular accident. We continued all her previous medicatio ns and we did not make any new medication this admission. This patient will continue to follow up [facility] wound care team after discharge. The patient is seen and examined at bedside today. All test results discussed with the patient, the patient is medically stable for discharge today.
[2017-05-17] MEDS ORDERED: Prevnar 13-Val Conj/PF 0.5 ML SYRINGE IM ONE (21:00)
== END 2017-05-17 13:07 | disposition home or self-care (01) ==
LOC: ERS 10:43 → 2SE 15:00
PROVIDERS: ADMIT Internal Medicine; ATTEND Internal Medicine
DX: R41.82 Altered mental status, unspecified (principal); I73.9 Peripheral vascular disease, unspecified; I13.0 Hypertensive heart and chronic kidney disease with heart failure and stage 1 through stage 4 chronic kidney disease, or unspecified chronic kidney disease; E11.22 Type 2 diabetes mellitus with diabetic chronic kidney disease; N18.3 Chronic kidney disease, stage 3 (moderate); I50.32 Chronic diastolic (congestive) heart failure; E79.0 Hyperuricemia without signs of inflammatory arthritis and tophaceous disease; R79.89 Other specified abnormal findings of blood chemistry; S81.802A Unspecified open wound, left lower leg, initial encounter; M19.90 Unspecified osteoarthritis, unspecified site; E11.40 Type 2 diabetes mellitus with diabetic neuropathy, unspecified; I16.0 Hypertensive urgency; E66.01 Morbid (severe) obesity due to excess calories; Z68.42 Body mass index [BMI] 45.0-49.9, adult; Z79.899 Other long term (current) drug therapy; Z79.4 Long term (current) use of insulin; Z90.49 Acquired absence of other specified parts of digestive tract; Z90.710 Acquired absence of both cervix and uterus
CPT/HCPCS: 70450; 70551; 71045; 80048; 80053; 80061; 82140; 82550; 82553; 82607; 82746; 82962 ×2; 83090; 83880; 84443; 84484 ×2; 85025 ×2; 85610; 85730; 86780; 87040; 93005; 93880; 96372; 96374; 96376; 97139; 99285; G0378; 36415; 36416; J0360; J1650